=== PATIENT | male | born 1940 | race Caucasian/White ===

== ENCOUNTER 2016-10-28 14:15 | Inpatient (IN) | payer MEDICARE, OTHER ==
[~2016-10-28] VITALS: Ht 177.8 cm; Wt 51.0 kg
[2016-10-28] VITALS (7 sets, daily range): BP systolic 116–171; BP diastolic 82–92; PULSE 54–86; RESP 16–19; TEMP 97.4–97.8; O2SAT 97–100
[2016-10-28] MEDS ORDERED: ACET-703 PO (14:59)
[2016-10-28] MEDS ORDERED: COLA100C3 PO (14:59)
[2016-10-28] MEDS ORDERED: DIVA250ER PO ×2 (14:59)
[2016-10-28] MEDS ORDERED: LORA-474 PO (15:07)
[2016-10-28] MEDS ORDERED: DAILTAB39 PO (15:07)
[2016-10-28] MEDS ORDERED: OLAN5TAB PO (15:07)
[2016-10-28] MEDS ORDERED: MELA1TAB18 PO (15:07)
[2016-10-28] MEDS ORDERED: RIVA4.6T T-DERMAL (15:07)
[2016-10-28] MEDS ORDERED: OLAN2.5T PO (15:07)
[2016-10-28 15:09] LABS: AUTOMATED NEUTROPHIL # 5.3 TH/MM3 (1.8-7.7); BASOPHIL % 0.7 % (0.0-2.0); EOSINOPHIL % 0.1 % (0.0-4.0); HEMATOCRIT 39.5 % (39.0-51.0); HEMO FLAGS DIFF FINAL; LYMPH % 14.2 % (9.0-44.0); MEAN CELL VOLUME 94.1 FL (80.0-100.0); MEAN CORPUSCULAR HEMOGLOBIN 33.2 PG (27.0-34.0); MEAN CORPUSCULAR HGB CONC 35.3 % (32.0-36.0); PLATELET COUNT 222 TH/MM3 (150-450); RED CELL DISTRIBUTION WIDTH 14.7 % (11.6-17.2); WHITE BLOOD COUNT 6.9 TH/MM3 (4.0-11.0)
--- NOTE | 2016-10-28 15:11 | RADRPT ---
EXAM DATE/TIME: 10/28/2016 14:56 [facility] COMPARISON: No previous studies available for comparison. INDICATIONS : Altered mental status. Multiple falls over the past week. RADIATION DOSE: 56.35 CTDIvol (mGy) MEDICAL HISTORY : Dementia. SURGICAL HISTORY : Unable to obtain. ENCOUNTER: Initial ACUITY: 1 week PAIN SCALE: Non-responsive LOCATION: cranial TECHNIQUE: Multiple contiguous axial images were obtained of the head. Using automated exposure control and adj ustment of the mA and/or kV according to patient size, radiation dose was kept as low as reasonably a chievable to obtain optimal diagnostic quality images. FINDINGS: CEREBRUM: The ventricles are normal for age. No evidence of midline shift, mass lesion, hemorrhage or acute in farction. No extra-axial fluid collections are seen. There is extensive atrophy and microvascular is chemic deep white matter demyelinization. POSTERIOR FOSSA: The cerebellum and brainstem are intact. The 4th ventricle is midline. The cerebellopontine angle i s unremarkable. EXTRACRANIAL: The visualized portion of the orbits is intact. Air-fluid level left maxillary sinus and mucoperioste al thickening in the bilateral ethmoid air cells. SKULL: The calvaria is intact. No evidence of skull fracture. CONCLUSION: Intracranially with diffuse deep white matter periventricular microvascular ischemic demyelination an d atrophy. No acute abnormality. Bilateral ethmoid sinus disease mucoperiosteal thick ening and air-fluid level in the left maxillary sinus Eduardo Gurrola MD on October 28, 2016 at 15:07 Board Certified Radiologist. This report was verified electronically.
--- NOTE | 2016-10-28 15:24 | PD ---
HPI Chief Complaint: Fall Time Seen by Provider: 14:21 Travel History International Travel<30 days: No Contact w/Intl Traveler<30days: No Traveled to known affect area: No History of Present Illness HPI Patient is a demented 76-year-old male who presents the emergency department with report of altered mental status after a fall. Patient has reportedly had several falls over the last week, with injury to the head. Staff note that he is now having difficulty ambulating and increasing confusion, which is a change from his baseline mental status. He was sent to [facility] several times over the last week for evaluation with discharge to home. Care facility requested transfer to [facility] today given they've not gotten answers previously. Patient is alert to self only and unable to participate with history. PFSH Past Medical History Hx Anticoagulant Therapy: No Anxiety: Yes Cancer: Yes (skin) Cardiovascular Problems: No Chemotherapy: No Cerebrovascular Accident: No Dementia: Yes Diabetes: No Diminished Hearing: No Headaches: Yes (chronic) Respiratory: No Tetanus Vaccination: Unknown ?: Not Past Surgical History Surgical History: Unable to Obtain Hysterectomy: No Social History Alcohol Use: No Tobacco Use: No Substance Use: No Allergies-Medications (Allergen,Severity, Reaction): Coded Allergies: No Known Allergies (Unverified , 10/28/16) Reported Meds & Prescriptions Reported Meds & Active Scripts Active Reported Exelon Patch (Rivastigmine) 4.6 mg/24 hr Patch 1 Patch T-DERMAL DAILY Remove old patch before applying new patch Daily Anusha (Multiple Vitamin) 1 Tab Tab 1 Tab PO DAILY Olanzapine 5 Mg Tab 5 Mg PO BID Olanzapine 2.5 Mg Tab 2.5 Mg PO HS Melatonin 10 Mg Tab 10 Mg PO HS Ativan (Lorazepam) 1 Mg Tab 1 Mg PO TID Depakote ER (Divalproex Sodium) 250 Mg Mazin 250 Mg PO DAILY Depakote ER (Divalproex Sodium) 250 Mg Mazin 500 Mg PO HS Colace (Docusate Sodium) 100 Mg Cap 100 Mg PO BID Tylenol Extra Strength (Acetaminophen) 500 Mg Tab 500 Mg PO BID Review of Systems ROS Limitations: Altered Mental Status, Poor Historian Physical Exam Exam Limitations: Altered Mental Status, Poor Historian Narrative GENERAL: Chronically ill-appearing demented elderly male in no acute distress SKIN: Warm and dry. Skin tears to the bilateral elbows. HEAD: To kiran/abrasion to the head. Normocephalic. EYES: Pupils equal and round. No scleral icterus. No injection or drainage. ENT: No nasal bleeding or discharge. Mucous membranes pink and moist. NECK: Supple without midline tenderness to palpation. CARDIOVASCULAR: Regular rate and rhythm. No murmur appreciated. RESPIRATORY: No accessory muscle use. Clear to auscultation. Breath sounds equal bilaterally. GASTROINTESTINAL: Abdomen soft, non-tender, nondistended. MUSCULOSKELETAL: Skin tears to the bilateral elbows as above. 1-2+ edema to the mid kiran bilaterally. NEUROLOGICAL: Awake and alert to self only. Mumbling speech. Grossly nonfocal neuro exam. Data Data Last Documented VS Vital Signs Date Time Temp Pulse Resp B/P Pulse Ox O2 Delivery O2 Flow Rate FiO2 10/28/16 14:37 100 Room Air 10/28/16 14:33 73 16 10/28/16 14:25 97.8 116/82 Orders Electrocardiogram (10/28/16 14:21) Ammonia (10/28/16 14:21) Complete Blood Count With Diff (10/28/16 14:21) Comprehensive Metabolic Panel (10/28/16 14:21) Urinalysis - C+S If Indicated (10/28/16 14:21) Ct Brain W/O Iv Contrast(Rout) (10/28/16 14:21) Ecg Monitoring (10/28/16 14:21) Iv Access Insert/Monitor (10/28/16 14:21) Cath For Specimen (10/28/16 14:21) Oximetry (10/28/16 14:21) Valproic Acid (Depakene) (10/28/16 14:21) Urine Culture (10/28/16 15:27) Admit Order (Ed Use Only) (10/28/16 15:59) Ceftriaxone Inj (Rocephin Inj) (10/28/16 16:00) Labs Laboratory Tests Test 10/28/16 10/28/16 14:52 15:27 White Blood Count 6.9 TH/MM3 Red Blood Count 4.20 MIL/MM3 Hemoglobin 13.9 GM/DL Hematocrit 39.5 % Mean Corpuscular Volume 94.1 FL Mean Corpuscular Hemoglobin 33.2 PG Mean Corpuscular Hemoglobin 35.3 % Concent Red Cell Distribution Width 14.7 % Platelet Count 222 TH/MM3 Mean Platelet Volume 8.5 FL Neutrophils (%) (Auto) 77.0 % Lymphocytes (%) (Auto) 14.2 % Monocytes (%) (Auto) 8.0 % Eosinophils (%) (Auto) 0.1 % Basophils (%) (Auto) 0.7 % Neutrophils # (Auto) 5.3 TH/MM3 Lymphocytes # (Auto) 1.0 TH/MM3 Monocytes # (Auto) 0.6 TH/MM3 Eosinophils # (Auto) 0.0 TH/MM3 Basophils # (Auto) 0.0 TH/MM3 CBC Comment DIFF FINAL Differential Comment Sodium Level 138 MEQ/L Potassium Level 4.1 MEQ/L Chloride Level 104 MEQ/L Carbon Dioxide Level 26.9 MEQ/L Anion Gap 7 MEQ/L Blood Urea Nitrogen 31 MG/DL Creatinine 0.70 MG/DL Estimat Glomerular Filtration 110 ML/MIN Rate Random Glucose 84 MG/DL Calcium Level 8.9 MG/DL Total Bilirubin 0.4 MG/DL Aspartate Amino Transf 137 U/L (AST/SGOT) Alanine Aminotransferase 71 U/L (ALT/SGPT) Alkaline Phosphatase 102 U/L Ammonia 14 MCMOL/L Total Protein 6.7 GM/DL Albumin 2.6 GM/DL Valproic Acid (Depakene) Level 18 MCG/ML Urine Color YELLOW Urine Turbidity CLOUDY Urine pH 7.0 Urine Specific [place] 1.031 Urine Protein 30 mg/dL Urine Glucose (UA) NEG mg/dL Urine Ketones 10 mg/dL Urine Occult Blood SMALL Urine Nitrite NEG Urine Bilirubin NEG Urine Urobilinogen 2.0 MG/DL Urine Leukocyte Esterase MOD Urine RBC 25 /hpf Urine WBC 34 /hpf Urine WBC Clumps FEW Urine Squamous Epithelial <1 /hpf Cells Urine Triple Phosphate FEW /hpf Crystals Urine Bacteria OCC /hpf Urine Mucus FEW /lpf Urine Yeast (Budding) MANY Microscopic Urinalysis Comment CULTURE INDICATED MDM Medical Decision Making Medical Screen Exam Complete: Yes Emergency Medical Condition: Yes Medical Record Reviewed: Yes Differential Diagnosis Demented 76-year-old male here with complaint of increasing falls over the last several weeks with altered mental status. Differential includes closed head injury, skull fracture, ICH, electrolyte abnormality, UTI, hyperammonemia, supratherapeutic Depakote level, worsening dementia. Narrative Course Patient placed on monitor, IV established and blood obtained. Twelve-lead EKG showed sinus rhythm with mild sinus arrhythmia. No notable ST abnormalities, normal intervals. CT of the brain shows chronic changes, but no acute abnormalities. CBC, CMP, ammonia, Depakote level, urinalysis obtained and notable for urinary tract infection with white cell, white cell clumps, bacteria and yeast. Patient was treated with Rocephin and will be admitted for further management. Diagnosis Primary Impression: Altered mental status Qualified Code: R41.0 - Delirium Additional Impression: Urinary tract infection Qualified Code: N30.01 - Acute cystitis with hematuria Admitting Information Admitting Physician Requests: Admit Denisse Montez MD Oct 28, 2016 15:24
[2016-10-28 15:37] LABS: ALKALINE PHOSPHATASE 102 U/L (45-117); ALT (GPT) 71 U/L (12-78); ANION GAP 7 MEQ/L (5-15); AST (GOT) 137 U/L (15-37); BICARBONATE 26.9 MEQ/L (21.0-32.0); BLOOD UREA NITROGEN 31 MG/DL (7-18); CHLORIDE 104 MEQ/L (98-107); GLOMERULAR FILTRATION RATE 110 ML/MIN (>89); SODIUM (NA) 138 MEQ/L (136-145); TOTAL BILIRUBIN ADULT 0.4 MG/DL (0.2-1.0)
[2016-10-28 15:43] LABS: POTASSIUM 4.1 MEQ/L (3.5-5.1)
[2016-10-28 15:52] LABS: BACTERIA, URINE OCC /hpf; BLOOD, URINE SMALL (NEG); COMMENT (UR) CULTURE INDICATED; CULTURE IF INDICATED CULTURE INDICATED; GLUCOSE,URINE NEG (NEG); KETONE, URINE 10 mg/dL (NEG); MUCUS URINE FEW /lpf (OCC); NITRITE,URINE NEG (NEG); SQUAMOUS EPITHELIAL CELL URINE <1 /hpf (0-5); URINE COLOR YELLOW (YELLW/STRAW)
[2016-10-28 15:53] LABS: TRIPLE PHOSPHATE CRYSTAL,URINE FEW /hpf
[2016-10-28] MEDS ORDERED: cefTRIAXone INJ 1,000 MG in SODIUM CHLORIDE 0.9% INJ 100 ML IV ONE (16:00)
[2016-10-28] MEDS ORDERED: SODIUM CHLORIDE 0.9% FLUSH 5 ML FLUSH FLUSH PRN (17:45)
[2016-10-28] MEDS ORDERED: HALOPERIDOL LACTATE 5 MG/ML AMP IM ONE (18:45)
[2016-10-28] MEDS ORDERED: DIVALPROEX SODIUM E.R. 250 MG TAB PO SCH (21:00)
[2016-10-28] MEDS: ACETAMINOPHEN 1000 MG/100 ML VIAL IV SCH (21:58)
[2016-10-28] MEDS: SODIUM CHLORIDE 0.9% FLUSH 5 ML FLUSH FLUSH SCH (21:59)
[2016-10-28] MEDS: DOCUSATE SODIUM 100 MG CAP PO SCH (21:59)
[2016-10-28] MEDS: OLANZapine 5 MG TAB PO SCH (21:59)
[2016-10-28] MEDS: DIVALPROEX SODIUM E.R. 500 MG TAB PO SCH (21:59)
[2016-10-28] MEDS: OLANZapine 2.5 MG TAB PO SCH (21:59)
--- NOTE | 2016-10-28 23:16 | HHI.HP ---
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 He has been seen in [facility] many times in the last several months for falls and continues to deteriorate. More acutely, he is had worsening confusion and agitation. Patient is a poor historian and no report was given with regards to his baseline from the prison. [facility] will makes comment about the frequent falls. Patient will occasionally answer yes or no questions in this regard he says he is not having any chest pains, trouble breathing, burning when he urinates, headaches, vision changes. However, as noted patient is a poor historian due to severe dementia and current altered mental status. (Frank Martini MD R1) Review of Systems ROS Limitations: Clinical Condition, Altered Mental Status, Poor Historian Other See history of present illness (Frank Martini MD R1) Past Family Social History Past Medical History Parkinson's disease Dementia Past Surgical History No history available, patient cannot answer Reported Medications Reported Meds & Active Scripts Active Reported Exelon Patch (Rivastigmine) 4.6 mg/24 hr Patch 1 Patch T-DERMAL DAILY Remove old patch before applying new patch Daily Anusha (Multiple Vitamin) 1 Tab Tab 1 Tab PO DAILY Olanzapine 5 Mg Tab 5 Mg PO BID Olanzapine 2.5 Mg Tab 2.5 Mg PO HS Melatonin 10 Mg Tab 10 Mg PO HS Ativan (Lorazepam) 1 Mg Tab 1 Mg PO TID Depakote ER (Divalproex Sodium) 250 Mg Mazin 250 Mg PO DAILY Depakote ER (Divalproex Sodium) 250 Mg Mazin 500 Mg PO HS Colace (Docusate Sodium) 100 Mg Cap 100 Mg PO BID Tylenol Extra Strength (Acetaminophen) 500 Mg Tab 500 Mg PO BID (Frank Martini MD R1) Allergies: Coded Allergies: No Known Allergies (Unverified , 10/28/16) Active Ordered Medications Current Medications Medications (Trade) Dose Ordered Sig/Bhupendra Route Start Time Stop Time Status Last Admin (Depakote Er) 250 mg DAILY PO 10/29/16 09:00 (Colace) 100 mg BID PO 10/28/16 21:00 10/28/16 21:59 (Theragran) 1 tab DAILY PO 10/29/16 09:00 (ZyPREXA) 2.5 mg HS PO 10/28/16 21:00 10/28/16 21:59 (ZyPREXA) 5 mg BID PO 10/28/16 21:00 10/28/16 21:59 (Exelon 4.6 Mg Patch.24hr) 1 patch DAILY T-DERMAL 10/29/16 09:00 (NS Flush) 2 ml UNSCH PRN FLUSH 10/28/16 17:45 (NS Flush) 2 ml BID FLUSH 10/28/16 21:00 10/28/16 21:59 (Roxicodone) 10 mg Q4H PRN PO 10/28/16 17:45 (Ofirmev Inj) 1,000 mg Q6H IV 10/28/16 20:00 10/29/16 14:01 10/28/16 21:58 Oxycodone HCl 5 mg 5 mg Q4H PRN PO 10/28/16 17:45 (Rocephin Inj/NS Inj) 100 ml @ 200 mls/hr Q24H IV 10/29/16 17:00 (Depakote Er) 500 mg HS PO 10/28/16 21:00 10/28/16 21:59 Family History No records available, patient cannot answer Social History No records available, patient does not answer direct questioning (Frank Martini MD R1) Physical Exam Vital Signs Vital Signs Date Time Temp Pulse Resp B/P Pulse Ox O2 Delivery O2 Flow Rate FiO2 10/28/16 20:28 80 17 146/92 98 10/28/16 20:00 97.4 86 18 171/86 97 10/28/16 18:25 77 19 166/82 99 Room Air 10/28/16 16:37 72 17 124/87 100 Room Air 10/28/16 14:37 100 Room Air 10/28/16 14:33 73 16 100 Room Air 10/28/16 14:25 97.8 78 16 116/82 97 Physical Exam Exam limited to due to mental state, patient not following commands well GENERAL: Well-developed, undernourished elderly white male lying in bed appearing confused but pleasant and in no acute distress SKIN: Small ecchymoses/abrasions noted on the bilateral elbows; approximately 3 x 1 cm abrasion noted on the right frontal aspect of the skull; large (greater than 10 x 10 centimeter) stage I sacral decubitus ulcer with no overlying skin breakdown. HEAD: NC/AT EYES: PERRL. EOMI. No conjunctival injection or drainage. ENT: MMM, OP without erythema, tonsillar swelling, or exudate. NECK: Supple, no lymphadenopathy. CARDIOVASCULAR: NRRR. Normal S1/S2. No MRG RESPIRATORY: CTAB. No crackles or wheezes. GASTROINTESTINAL: Abdomen soft, non-distended, non-tender. MUSCULOSKELETAL: Extremities without cyanosis or edema. NEUROLOGICAL: Awake, distracted easily. Not oriented to person, place, or time. Cranial nerves II through XII grossly intact. Difficult to do full neurologic exam because patient does not follow commands well; severe tremor bilateral upper extremities, pill rolling.. Speech normal volume and rate, very easily distracted, talks in circles, highly confused. Laboratory Laboratory Tests Test 10/28/16 10/28/16 10/28/16 14:52 15:27 18:19 White Blood Count 6.9 Red Blood Count 4.20 Hemoglobin 13.9 Hematocrit 39.5 Mean Corpuscular Volume 94.1 Mean Corpuscular Hemoglobin 33.2 Mean Corpuscular Hemoglobin 35.3 Concent Red Cell Distribution Width 14.7 Platelet Count 222 Mean Platelet Volume 8.5 Neutrophils (%) (Auto) 77.0 Lymphocytes (%) (Auto) 14.2 Monocytes (%) (Auto) 8.0 Eosinophils (%) (Auto) 0.1 Basophils (%) (Auto) 0.7 Neutrophils # (Auto) 5.3 Lymphocytes # (Auto) 1.0 Monocytes # (Auto) 0.6 Eosinophils # (Auto) 0.0 Basophils # (Auto) 0.0 CBC Comment DIFF FINAL Differential Comment Sodium Level 138 Potassium Level 4.1 Chloride Level 104 Carbon Dioxide Level 26.9 Anion Gap 7 Blood Urea Nitrogen 31 Creatinine 0.70 Estimat Glomerular Filtration 110 Rate Random Glucose 84 Calcium Level 8.9 Total Bilirubin 0.4 Aspartate Amino Transf 137 (AST/SGOT) Alanine Aminotransferase 71 (ALT/SGPT) Alkaline Phosphatase 102 Ammonia 14 Total Protein 6.7 Albumin 2.6 Valproic Acid (Depakene) Level 18 Urine Color YELLOW Urine Turbidity CLOUDY Urine pH 7.0 Urine Specific [place] 1.031 Urine Protein 30 Urine Glucose (UA) NEG Urine Ketones 10 Urine Occult Blood SMALL Urine Nitrite NEG Urine Bilirubin NEG Urine Urobilinogen 2.0 Urine Leukocyte Esterase MOD Urine RBC 25 Urine WBC 34 Urine WBC Clumps FEW Urine Squamous Epithelial <1 Cells Urine Triple Phosphate FEW Crystals Urine Bacteria OCC Urine Mucus FEW Urine Yeast (Budding) MANY Microscopic Urinalysis Comment CULTURE INDICATED Troponin I LESS THAN 0.02 Date/Time Procedure Status Source Growth 10/28/16 18:02 Aerobic Blood Culture Received Blood Peripheral Pending 10/28/16 18:02 Anaerobic Blood Culture Received Blood Peripheral Pending 10/28/16 15:27 Urine Culture Received Urine Clean Catch Pending (Frank Martini MD R1) Result Diagram: 10/28/16 1452 10/28/16 1452 Imaging Last Impressions Head CT 10/28/16 1421 Signed Impressions: Service Date/Time: Friday, October 28, 2016 14:56 - CONCLUSION: Intracranially with diffuse deep white matter periventricular microvascular ischemic demyelination and atrophy. No acute abnormality. Bilateral ethmoid sinus disease mucoperiosteal thickening and air-fluid level in the left maxillary sinus Eduardo Gurrola MD (Frank Martini MD R1) Assessment and Plan Assessment and Plan 76-year-old male with largely unknown past medical history besides dementia and severe Parkinson's disease presenting with: #1 delirium Difficult to tell whether current mental status is due to underlying dementia versus acute change; for now will assume the changes acute on chronic and workup for medical causes of delirium. Urinalysis showing moderate leuk esterase, many white blood cells Pulmonary exam clear, no leukocytosis, unlikely to be pneumonia CT head negative for acute intracranial bleed * We'll attempt scoff family in the morning to determine patient's baseline mental functioning * Ceftriaxone 1 g IV every 24 hours to cover UTI * Follow up urine culture * IV Tylenol every 6 hours 1 g scheduled * Oxycodone when necessary pain based on nursing assessment * Soft limb restraints as needed given that patient is continually trying to get out of bed due to significant fall risk * Bed rest with bed rest precautions * Hold offending medications (lorazepam) * Frequent redirection, goals to prevent #2 urinary tract infection * Rocephin as above #3 Parkinson's disease * Continue home rivastigmine patch #4 dementia * Continue home antipsychotic medications: Depakote, olanzapine * AM Depakote level #5 DVT prophylaxis SCDs bilaterally #6 frequent falls Mostly mechanical, no evidence at this time of other etiology * PT evaluate and treat * Case management to assist with placement on discharge * Further goals of care pending discussion with family Code Status Full code; will attempt to obtain documentation from either prison or family regarding CODE STATUS Discussed Condition With Dr. Oconnell, Dr. Armstrong (Frank Martini MD R1) Attending Attestation The patient has been seen and examined. The chart and all resident notes have been reviewed. I agree that inpatient care is appropriate and that a two midnight stay is expected for the reasons documented in the resident history and physical. I have discussed this with the resident and certify the resident s order for inpatient admission. (Rhonda Armstrong MD) Problem List: (1) Altered mental status Status: Acute (2) Urinary tract infection Status: Acute (3) Frequent falls Status: Chronic (4) Parkinson disease Status: Chronic (5) Dementia Status: Chronic (Frank Martini MD R1) Physician Certification 2 Midnight Certification Type: Admission for Inpatient Services Order for Inpatient Services The services are ordered in accordance with Medicare regulations or non- Medicare payer requirements, as applicable. In the case of services not specified as inpatient-only, they are appropriately provided as inpatient services in accordance with the 2-midnight benchmark. Estimated LOS (days): 2 days is the estimated time the patient will need to remain in the hospital, assuming treatment plan goals are met and no additional complications. 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
[2016-10-29] VITALS: BP 139/80; PULSE 58; RESP 18; TEMP 97.6; O2SAT 99
[2016-10-29] MEDS: ACETAMINOPHEN 1000 MG/100 ML VIAL IV SCH ×3 (02:00→16:08)
[2016-10-29 04:00] VITALS: BP 138/69; PULSE 57; RESP 18; TEMP 97.3; O2SAT 100
[2016-10-29 08:03] LABS: AUTOMATED NEUTROPHIL # 4.2 TH/MM3 (1.8-7.7); BASOPHIL % 0.6 % (0.0-2.0); EOSINOPHIL % 0.8 % (0.0-4.0); HEMATOCRIT 39.1 % (39.0-51.0); HEMO FLAGS DIFF FINAL; LYMPH % 18.9 % (9.0-44.0); LYMPHOCYTE # 1.1 TH/MM3 (1.0-4.8); MEAN CELL VOLUME 94.1 FL (80.0-100.0); MEAN CORPUSCULAR HEMOGLOBIN 32.6 PG (27.0-34.0); MEAN CORPUSCULAR HGB CONC 34.6 % (32.0-36.0); MONO % 10.1 % (0.0-8.0); NEUT % 69.6 % (16.0-70.0); PLATELET COUNT 207 TH/MM3 (150-450); RED BLOOD COUNT 4.15 MIL/MM3 (4.50-5.90); RED CELL DISTRIBUTION WIDTH 14.3 % (11.6-17.2); WHITE BLOOD COUNT 6.1 TH/MM3 (4.0-11.0)
[2016-10-29 08:27] LABS: POTASSIUM 3.3 MEQ/L (3.5-5.1)
[2016-10-29 08:54] VITALS: BP 137/69; PULSE 68; RESP 18; TEMP 96.8; O2SAT 97
[2016-10-29] MEDS: OLANZapine 5 MG TAB PO SCH ×2 (09:00→20:51)
[2016-10-29] MEDS ORDERED: POTASSIUM CHLORIDE 10 MEQ CONTROLLED RELEASE TAB PO ONE (09:00)
[2016-10-29] MEDS: SODIUM CHLORIDE 0.9% FLUSH 5 ML FLUSH FLUSH SCH ×2 (09:00→20:51)
--- NOTE | 2016-10-29 09:14 | RADRPT ---
EXAM DATE/TIME: 10/29/2016 08:19 [facility] COMPARISON: No previous studies available for comparison. INDICATIONS : Pneumonia. MEDICAL HISTORY : Dementia. SURGICAL HISTORY : None. ENCOUNTER: Initial ACUITY: 1 day PAIN SCORE: Non-responsive. LOCATION: Bilateral chest FINDINGS: A single view of the chest demonstrates mild parenchymal changes in the right lung base. Otherwise, t he lungs are grossly clear. There are no pleural effusions or pulmonary edema. The heart size is with in normal limits. The bony structures are grossly intact.. CONCLUSION: Mild streaky parenchymal changes in the right lung base suggestive of pneumonia. Carlin Kramer MD on October 29, 2016 at 9:12 Board Certified Radiologist. This report was verified electronically.
[2016-10-29] MEDS: DOCUSATE SODIUM 100 MG CAP PO SCH ×2 (09:56→20:51)
[2016-10-29] MEDS: MULTIVITAMIN TAB PO SCH (09:56)
[2016-10-29] MEDS: DIVALPROEX SODIUM E.R. 250 MG TAB PO SCH (09:56)
[2016-10-29] MEDS: RIVASTIGMINE 4.6 MG/24 HOUR PATCH T-DERMAL SCH (10:18)
[2016-10-29] MEDS ORDERED: AZITHROMYCIN INJ 500 MG in SODIUM CHLOR 0.9% 250 ML INJ 250 ML IV ONE (12:30)
[2016-10-29 13:22] VITALS: BP 143/71; PULSE 62; RESP 18; TEMP 96.1; O2SAT 97
--- NOTE | 2016-10-29 13:23 | HHI.FPPN ---
Subjective Subjective Patient seen and examined with the resident team. Case reviewed and discussed Please refer to resident H&P for further details regarding HPI, ROS, PMH, SurgHx , Fh and SocHx In summary, patient is a 76yoM with a history of known advanced dementia presenting from his nursing facility for AMS The patient has had multiple prior hospitalizations due to frequent and increased falling. He is seen in his hospital bed this am, slightly more alert, cognition remains the same. Speech therapy and sitter at the bedside to perform cognitive eval [facility] Objective Objective Laboratory Tests - Abnormals Test 10/28/16 10/28/16 10/28/16 10/29/16 14:52 15:27 18:19 07:27 Red Blood Count 4.20 MIL/MM3 4.15 MIL/MM3 Neutrophils (%) (Auto) 77.0 % Blood Urea Nitrogen 31 MG/DL 21 MG/DL Aspartate Amino Transf 137 U/L (AST/SGOT) Albumin 2.6 GM/DL Valproic Acid (Depakene) Level 18 MCG/ML Urine Turbidity CLOUDY Urine Protein 30 mg/dL Urine Ketones 10 mg/dL Urine Occult Blood SMALL Urine Leukocyte Esterase MOD Urine RBC 25 /hpf Urine WBC 34 /hpf Urine WBC Clumps FEW Urine Triple Phosphate FEW /hpf Crystals Urine Bacteria OCC /hpf Urine Mucus FEW /lpf Urine Yeast (Budding) MANY Troponin I LESS THAN 0.02 NG/ML Monocytes (%) (Auto) 10.1 % Potassium Level 3.3 MEQ/L Creatinine 0.50 MG/DL Calcium Level 8.4 MG/DL 25-Hydroxy Vitamin D Total 19.0 ng/ML Vital Signs 10/28/16 10/28/16 10/28/16 10/28/16 14:25 14:33 14:37 16:37 Temp 97.8 Pulse 78 73 72 Resp 16 16 17 B/P 116/82 124/87 Pulse Ox 97 100 100 100 O2 Delivery Room Air Room Air Room Air 10/28/16 10/28/16 10/28/16 10/28/16 18:25 20:00 20:28 23:30 Temp 97.4 Pulse 77 86 80 54 Resp 19 18 17 B/P 166/82 171/86 146/92 Pulse Ox 99 97 98 O2 Delivery Room Air 10/29/16 10/29/16 10/29/16 00:00 04:00 08:54 Temp 97.6 97.3 96.8 Pulse 58 57 68 Resp 18 18 18 B/P 139/80 138/69 137/69 Pulse Ox 99 100 97 Physical exam GENERAL: Thin elderly male, resting in bed. Awake. Confused SKIN: Warm and dry. No rashes, several abrasions over head and extremities. HEAD: Normocephalic. AT EYES: No scleral icterus. No injection or drainage. ENT: OP clear. MMM NECK: Supple, trachea midline. No JVD or lymphadenopathy. CARDIOVASCULAR: Regular rate and rhythm without audible murmurs, gallops, or rubs. RESPIRATORY: Breath sounds equal and clear to auscultation bilaterally. No accessory muscle use. GASTROINTESTINAL: Abdomen soft, non-tender, nondistended. Normal active BS. No rebound. No suprapubic tenderness MUSCULOSKELETAL: No cyanosis, there is trace edema, warmth and erythema over R dorsal foot and ankle with ?tenderness and mild noted deformity of 5th metatarsal. BACK: Nontender without obvious deformity. No CVA tenderness. NEURO: Awake, pleasantly confused. Able to follow some commands, answers, but inappropriately. Assessment Assessment 76yoM admitted with: AMS, suspect related to UTI Advanced dementia PNA Hypokalemia Frequent falls PLAN PLAN PT consultation Empiric antibiotic therapy Follow urine culture results blood cultures Foot XR to r/o injury from fall Replete hypokalemia ST consult for cognitive eval Check Depakote level Will contact family and NH to determine code status and health care surrogate status. Patient seen and examined with the resident team. Case reviewed with the resident team Agree with plan of care as discussed with me and documented in the resident note. Rhonda Armstrong MD Oct 29, 2016 13:21
--- NOTE | 2016-10-29 15:52 | RADRPT ---
EXAM DATE/TIME: 10/29/2016 14:17 [facility] COMPARISON: No previous studies available for comparison. INDICATIONS : Right ankle swelling. MEDICAL HISTORY : Dementia. SURGICAL HISTORY : None. ENCOUNTER: Subsequent ACUITY: 2 days PAIN SCORE: 0/10 LOCATION: Right ankle. FINDINGS: Three view exam was performed of the right ankle. The bony structures are in normal alignment. No e vidence of fracture, dislocation, and there is mild generalized soft tissue swelling.. The ankle mor tise is intact. No radiopaque foreign bodies are seen. Bony mineralization is normal. CONCLUSION: Mild generalized soft tissue swelling. Otherwise negative. Eduardo Gurrola MD on October 29, 2016 at 15:49 Board Certified Radiologist. This report was verified electronically.
[2016-10-29] MEDS ORDERED: cefTRIAXone INJ 1,000 MG in SODIUM CHLORIDE 0.9% INJ 100 ML IV SCH (17:00)
--- NOTE | 2016-10-29 17:02 | PD.CONS ---
Consult Service Palliative Care . Consult Requested By Dr. Martini . Primary Care Physician Non-Staff . Reason for Consultation a. To assist with evaluation and management of symptoms including: Pain, confusion, agitation b. To assist medical decision maker(s) with: better understanding of current medical conditions; weighing benefits/burdens of medical treatment options; making medical treatment decisions. . HPI History of Present Illness Mr. Hamilton is a 76-year-old gentleman who presented to [facility] ED in [place] on 10/28/16 for evaluation of AMS status post a fall. Mr. Hamilton, who is a resident at the [facility], has a history of Parkinson's disease and dementia. Per report, the patient has experienced an acute decline over the past 2 to 3 weeks. Facility staff reported the patient was having more difficulty with ambulation and increased confusion, previously the patient was able to ambulate, toilet, dress and feed himself with minimal assistance. The patient has had several falls (at least 3) last week, without head injury or LOC. He was sent to [facility] multiple times for evaluation with subsequent discharged home. The facility staff requested the patient be transferred to [place] for further evaluation given "they've not gotten answers previously". Upon presentation to the ED the patient was alert to self only, unable to provide any meaningful history. Additional diagnostic findings in while the ED include: * Vital signs: Pulse 78, respirations 16, BP 116/82, oxygen saturation 97% on room air, axillary temperature 97.8 * WBC: 6.9, hemoglobin 13.9, hematocrit 39.5, platelets 222, neutrophils 77% * Sodium: 138, potassium 4.1, chloride 104, carbon dioxide 26.9, glucose 84, calcium 8.9 * BUN 31, creatinine 0.70, GFR 110 * Total bilirubin: 0.4, AST 137, ALT 71, alkaline phosphatase 102, ammonia 14 * Troponin: < 0.02 * Total protein: 6.7, albumin 2.6 * Urinalysis: Cloudy urine with protein, ketones, occult blood, leukocyte Estrace, RBC, WBC, WBC clumps, bacteria, mucus and yeast. Suspicious for UTI, culture indicated. * Urine culture-Pending * Blood culture: No growth in 1 day * CT brain: Intracranially with diffuse deep white matter periventricular microvascular demyelination and atrophy, no acute abnormalities. * EKG: Sinus rhythm with mild sinus arrhythmia. No notable ST abnormalities, normal intervals. Mr. Hamilton was placed on a monitor and IV access was obtained. Twelve-lead EKG showed a sinus rhythm with mild sinus arrhythmia. No notable ST abnormality, normal intervals a CT of the brain showed chronic changes but no acute abnormalities. Urinalysis was suspicious for a urinary tract infection. Urine cultures and blood cultures pending. The patient received IV Rocephin and was admitted for further evaluation and medical management. Patient remains confused, in soft restraints with a sitter at bedside. Physical therapy and speech therapy have been consulted. Speech therapy administered a modified [facility] mental examination (UMS), excluding written portions. The patient achieved a score of 0/24 points which is indicative of severe neurocognitive disorder/dementia. Chest x-ray 10/29/16 shows mild streaking parenchymal changes in the right lung base suggestive of pneumonia. X-ray foot pending to rule out possible injury secondary to fall. Palliative Care was consulted to assist with symptom management and to discuss with the patient/family the benefits and burdens of his current illnesses and the options regarding future care. . Function/Cognitive Trajectory Per report, the patient has experienced an acute decline over the past 2 to 3 weeks. Facility staff reported the patient was having more difficulty with ambulation and increased confusion, previously the patient was able to ambulate , toilet, dress and feed himself with minimal assistance. The patient has had several falls (at least 3) last week. Patient's states the patient began to decline in February 2016, becoming increasingly forgetful and agitated. By April 2016, the patient's was no longer able to care for him at home and he was placed at [facility]. (Aphasia, tremors). A 30 pound weight loss is reported over a 9 month, despite good nutritional intake. Additional information pending tentative family meeting. . . Review of Systems ROS Limitations: Altered Mental Status, Poor Historian Past Family Social History Coded Allergies: No Known Allergies (Unverified , 10/28/16) Past Medical History Parkinson's disease Dementia . Past Surgical History No history available, patient is unable to answer questions . Reported Medications Exelon Patch (Rivastigmine) 4.6 mg/24 hr Patch 1 Patch T-DERMAL DAILY Remove old patch before applying new patch Daily Anusha (Multiple Vitamin) 1 Tab Tab 1 Tab PO DAILY Olanzapine 5 Mg Tab 5 Mg PO BID Olanzapine 2.5 Mg Tab 2.5 Mg PO HS Melatonin 10 Mg Tab 10 Mg PO HS Ativan (Lorazepam) 1 Mg Tab 1 Mg PO TID Depakote ER (Divalproex Sodium) 250 Mg Mazin 250 Mg PO DAILY Depakote ER (Divalproex Sodium) 250 Mg Mazin 500 Mg PO HS Colace (Docusate Sodium) 100 Mg Cap 100 Mg PO BID Tylenol Extra Strength (Acetaminophen) 500 Mg Tab 500 Mg PO BID . Current Medications Medications (Trade) Dose Ordered Sig/Bhupendra Route Start Time Stop Time Status Last Admin (Depakote Er) 250 mg DAILY PO 10/29/16 09:00 10/29/16 09:56 (Colace) 100 mg BID PO 10/28/16 21:00 10/29/16 09:56 (Theragran) 1 tab DAILY PO 10/29/16 09:00 10/29/16 09:56 (ZyPREXA) 2.5 mg HS PO 10/28/16 21:00 10/28/16 21:59 (ZyPREXA) 5 mg BID PO 10/28/16 21:00 10/29/16 09:00 (Exelon 4.6 Mg Patch.24hr) 1 patch DAILY T-DERMAL 10/29/16 09:00 10/29/16 10:18 (NS Flush) 2 ml UNSCH PRN FLUSH 10/28/16 17:45 (NS Flush) 2 ml BID FLUSH 10/28/16 21:00 10/28/16 21:59 (Roxicodone) 10 mg Q4H PRN PO 10/28/16 17:45 Oxycodone HCl 5 mg 5 mg Q4H PRN PO 10/28/16 17:45 (Rocephin Inj/NS Inj) 100 ml @ 200 mls/hr Q24H IV 10/29/16 17:00 Divalproex Sodium 500 mg 500 mg HS PO 10/28/16 21:00 10/28/16 21:59 (Zithromax Inj/ NS 250 ml Inj) 250 ml @ 250 mls/hr Q24H IV 10/30/16 12:00 . Family History Patient's sister with cerebral vascular disease . . Substance Use pending family meeting..... Tobacco: None known Alcohol: None known Prescription med abuse: None known Illicits: None known . Psychosocial History Patient was born in [place], but moved to [place] when he was approximately 11 years old. The patient's states he enjoyed fishing and hunting. He had 2 older brother, both before he was born (around the age of 2 years). He has one sister. The patient is to Indy Hamilton. Together they had 2 children - the patient's states one child is and they have lost contact with the other child. . Spiritual/Cultural Factors None known . Living Will: Never completed Health Care Surrogate: Never completed Durable Power of Seo Specialist: Never completed Documented care wishes: No written advanced directives have been completed. . Today's verbally stated goals: Patient is incapacitated, unable to verbalize medical treatment goals. Given the patient's severe neurocognitive disorder/dementia, it is unlikely he will retain this capacity. . Family/friends goals: Goals remain aggressive up to the point of resuscitation, pending further discussion with the patient's . . Ethical and Legal Issues Per [place] statutes, in the absence of written advanced directives healthcare proxy decision making will fall to the patient's Indy Hamilton. . Physical Exam Vital Signs Date Time Temp Pulse Resp B/P Pulse Ox O2 Delivery O2 Flow Rate FiO2 10/29/16 13:22 96.1 62 18 143/71 97 10/29/16 08:54 96.8 68 18 137/69 97 10/29/16 04:00 97.3 57 18 138/69 100 10/29/16 00:00 97.6 58 18 139/80 99 10/28/16 23:30 54 10/28/16 20:28 80 17 146/92 98 10/28/16 20:00 97.4 86 18 171/86 97 10/28/16 18:25 77 19 166/82 99 Room Air 10/28/16 16:37 72 17 124/87 100 Room Air . Exam Diagnostic Tests Laboratory Laboratory Tests Test 10/28/16 10/28/16 10/28/16 10/29/16 14:52 15:27 18:19 07:27 White Blood Count 6.9 TH/MM3 6.1 TH/MM3 (4.0-11.0) (4.0-11.0) Red Blood Count 4.20 MIL/MM3 4.15 MIL/MM3 (4.50-5.90) (4.50-5.90) Hemoglobin 13.9 GM/DL 13.5 GM/DL (13.0-17.0) (13.0-17.0) Hematocrit 39.5 % 39.1 % (39.0-51.0) (39.0-51.0) Mean Corpuscular Volume 94.1 FL 94.1 FL (80.0-100.0) (80.0-100.0) Mean Corpuscular Hemoglobin 33.2 PG 32.6 PG (27.0-34.0) (27.0-34.0) Mean Corpuscular Hemoglobin 35.3 % 34.6 % Concent (32.0-36.0) (32.0-36.0) Red Cell Distribution Width 14.7 % 14.3 % (11.6-17.2) (11.6-17.2) Platelet Count 222 TH/MM3 207 TH/MM3 (150-450) (150-450) Mean Platelet Volume 8.5 FL 8.2 FL (7.0-11.0) (7.0-11.0) Neutrophils (%) (Auto) 77.0 % 69.6 % (16.0-70.0) (16.0-70.0) Lymphocytes (%) (Auto) 14.2 % 18.9 % (9.0-44.0) (9.0-44.0) Monocytes (%) (Auto) 8.0 % (0.0-8.0) 10.1 % (0.0-8.0) Eosinophils (%) (Auto) 0.1 % (0.0-4.0) 0.8 % (0.0-4.0) Basophils (%) (Auto) 0.7 % (0.0-2.0) 0.6 % (0.0-2.0) Neutrophils # (Auto) 5.3 TH/MM3 4.2 TH/MM3 (1.8-7.7) (1.8-7.7) Lymphocytes # (Auto) 1.0 TH/MM3 1.1 TH/MM3 (1.0-4.8) (1.0-4.8) Monocytes # (Auto) 0.6 TH/MM3 0.6 TH/MM3 (0-0.9) (0-0.9) Eosinophils # (Auto) 0.0 TH/MM3 0.0 TH/MM3 (0-0.4) (0-0.4) Basophils # (Auto) 0.0 TH/MM3 0.0 TH/MM3 (0-0.2) (0-0.2) CBC Comment DIFF FINAL DIFF FINAL Differential Comment Sodium Level 138 MEQ/L 138 MEQ/L (136-145) (136-145) Potassium Level 4.1 MEQ/L 3.3 MEQ/L (3.5-5.1) (3.5-5.1) Chloride Level 104 MEQ/L 103 MEQ/L (98-107) (98-107) Carbon Dioxide Level 26.9 MEQ/L 27.0 MEQ/L (21.0-32.0) (21.0-32.0) Anion Gap 7 MEQ/L (5-15) 8 MEQ/L (5-15) Blood Urea Nitrogen 31 MG/DL (7-18) 21 MG/DL (7-18) Creatinine 0.70 MG/DL 0.50 MG/DL (0.60-1.30) (0.60-1.30) Estimat Glomerular Filtration 110 ML/MIN 162 ML/MIN Rate (>89) (>89) Random Glucose 84 MG/DL 77 MG/DL (74-106) (74-106) Calcium Level 8.9 MG/DL 8.4 MG/DL (8.5-10.1) (8.5-10.1) Total Bilirubin 0.4 MG/DL (0.2-1.0) Aspartate Amino Transf 137 U/L (15-37) (AST/SGOT) Alanine Aminotransferase 71 U/L (12-78) (ALT/SGPT) Alkaline Phosphatase 102 U/L (45-117) Ammonia 14 MCMOL/L (11-32) Total Protein 6.7 GM/DL (6.4-8.2) Albumin 2.6 GM/DL (3.4-5.0) Valproic Acid (Depakene) Level 18 MCG/ML (50-100) Urine Color YELLOW (YELLW/STRAW) Urine Turbidity CLOUDY (CLEAR) Urine pH 7.0 (5.0-8.5) Urine Specific Newberry 1.031 (1.002-1.035) Urine Protein 30 mg/dL (NEG-TRACE) Urine Glucose (UA) NEG mg/dL (NEG) Urine Ketones 10 mg/dL (NEG) Urine Occult Blood SMALL (NEG) Urine Nitrite NEG (NEG) Urine Bilirubin NEG (NEG) Urine Urobilinogen 2.0 MG/DL (LESS THAN 2.0) Urine Leukocyte Esterase MOD (NEG) Urine RBC 25 /hpf (0-3) Urine WBC 34 /hpf (0-5) Urine WBC Clumps FEW (NONE) Urine Squamous Epithelial <1 /hpf (0-5) Cells Urine Triple Phosphate FEW /hpf (NONE) Crystals Urine Bacteria OCC /hpf (NONE) Urine Mucus FEW /lpf (OCC) Urine Yeast (Budding) MANY (NONE) Microscopic Urinalysis Comment CULTURE INDICATED Troponin I LESS THAN 0.02 NG/ML (0.02-0.05) Vitamin B12 Level PG/ML (193-986) 25-Hydroxy Vitamin D Total 19.0 ng/ML (30-100) . Result Diagram: 10/29/16 0727 10/29/16 0727 Microbiology Microbiology Date/Time Procedure Status Source Growth 10/28/16 15:27 Urine Culture - Preliminary Resulted Urine Clean Catch IMMATURE GROWTH - REINCUBATE 10/28/16 18:02 Aerobic Blood Culture - Preliminary Resulted Blood Peripheral NO GROWTH IN 1 DAY 10/28/16 18:02 Anaerobic Blood Culture - Preliminary Resulted Blood Peripheral NO GROWTH IN 1 DAY . Imaging Last 24 hours Impressions Chest X-Ray 10/29/16 0000 Signed Impressions: Service Date/Time: Saturday, October 29, 2016 08:19 - CONCLUSION: Mild streaky parenchymal changes in the right lung base suggestive of pneumonia. Carlin Kramer MD . Patient/Family Conference Present at Family Conference: Spoke to patient's via telephone. Family meeting we plan for 10/30/16 at 1300. . Family Conference Location: Telephone Issues Discussed: * Palliative care role, purpose, approach * Additional medical, psychosocial, and spiritual history * Patients general health, functional status, and cognitive changes in the months leading up to the current hospitalization * Patient/family understanding of the current medical problems * Questions answered to the best of my ability * Palliative care contact information provided . Assessment and Plan Disease Oriented Problem List: (1) Dementia (2) Urinary tract infection (3) Frequent falls Symptom Scale: (1) Altered mental status Comment: Patient remains confused, in soft restraints with a sitter at bedside. Physical therapy and speech therapy have been consulted. Speech therapy administered a modified [facility] mental examination (UMS) , excluding written portions. The patient achieved a score of 0/24 points which is indicative of severe neurocognitive disorder/dementia. . (2) Pain 0-10 Scale: Unable to quantify Comment: PRN oxycodone is available q4 hours for symptom managementpain. . (3) Agitation Pertinent Non-Medical Issues Psychosocial: Spiritual: Legal: Ethical issues impacting care: Important Contacts Indy Hamilton, spouse: [phone] . Code Status: No Code Plan * NO CODE * Decision-making: Patient is incapacitated, unable to verbalize medical treatment goals. Given the patient's severe neurocognitive disorder/dementia, it is unlikely he will retain this capacity. Per [place] statutes, in the absence of written advanced directives healthcare proxy decision making will fall to the patient's Indy Hamilton. * Goals: Goals remain aggressive up to the point of resuscitation, pending further discussion with the patient's . * Tentative family meeting scheduled for tomorrow 10/30/16 at 1:30 PM * Palliative care will continue to follow this patient to establish trust, assist with symptom management and clarification of medical treatment goals. . Thank you for the opportunity to participate in the care of Mr. Hamilton. Opal Babb Oct 29, 2016 16:43 (3) Agitation Pertinent Non-Medical Issues Psychosocial: Spiritual: Legal: Ethical issues impacting care: Important Contacts Indy Hamilton, spouse: [phone] . Code Status: No Code Plan DRAFT.. * NO CODE * Decision-making: Patient is incapacitated, unable to verbalize medical treatment goals. Given the patient's severe neurocognitive disorder/dementia, it is unlikely he will retain this capacity. Per [place] statutes, in the absence of written advanced directives healthcare proxy decision making will fall to the patient's Indy Hamilton. * Goals: Goals remain aggressive up to the point of resuscitation, pending further discussion with the patient's . * Tentative family meeting scheduled for tomorrow 10/30/16 at 1:30 PM * Palliative care will continue to follow this patient to establish trust, assist with symptom management and clarification of medical treatment goals. . Thank you for the opportunity to participate in the care of Mr. Hamilton. Opal Babb Oct 29, 2016 16:43
[2016-10-29 18:18] VITALS: BP 152/79; PULSE 63; RESP 18; TEMP 98.3; O2SAT 98
[2016-10-29 20:00] VITALS: BP 137/81; PULSE 65; PULSE 82; RESP 18; TEMP 97.3; O2SAT 100
[2016-10-29] MEDS: DIVALPROEX SODIUM E.R. 500 MG TAB PO SCH (20:51)
[2016-10-29] MEDS: OLANZapine 2.5 MG TAB PO SCH (20:51)
--- NOTE | 2016-10-29 23:23 | EKG ---
Date Performed: 10/28/2016 Time Performed: 15:24:20 PTAGE: 76 years EKG: Sinus rhythm WITH SINUS ARRHYTHMIA POSSIBLE LEFT ATRIAL ENLARGEMENT BORDERLINE ECG NO PREVIOUS TRACING DOCTOR: Monae Nj Interpretating Date/Time 10/29/2016 23:16:19
[2016-10-30] VITALS (8 sets, daily range): BP systolic 134–165; BP diastolic 73–95; PULSE 62–91; RESP 20; TEMP 96–98; O2SAT 91–100
[2016-10-30 07:38] LABS: POTASSIUM 4.1 MEQ/L (3.5-5.1)
[2016-10-30] MEDS: DIVALPROEX SODIUM E.R. 250 MG TAB PO SCH (08:52)
[2016-10-30] MEDS: RIVASTIGMINE 4.6 MG/24 HOUR PATCH T-DERMAL SCH (08:52)
[2016-10-30] MEDS: CHOLECALCIFEROL (VIT D3) 1000 UNIT TAB PO SCH (08:52)
[2016-10-30] MEDS: DOCUSATE SODIUM 100 MG CAP PO SCH ×2 (08:52→21:13)
[2016-10-30] MEDS: SODIUM CHLORIDE 0.9% FLUSH 5 ML FLUSH FLUSH SCH ×2 (08:52→21:00)
[2016-10-30] MEDS: OLANZapine 5 MG TAB PO SCH ×2 (08:52→21:12)
[2016-10-30] MEDS: MULTIVITAMIN TAB PO SCH (08:52)
--- NOTE | 2016-10-30 10:58 | HHI.FPPN ---
Subjective Remarks No acute events overnight. AFVSS. Per sitter has eaten well with pureed diet. He occasionally will move his legs in the morning and try to get out of bed. Soft restraints continue to be in place. Still effectively non-verbal but no localizing symptoms patient or care staff able to identify. (Frank Martini MD R1) Objective Vitals Vital Signs Date Time Temp Pulse Resp B/P Pulse Ox O2 Delivery O2 Flow Rate FiO2 10/30/16 08:00 96.4 91 20 143/78 91 10/30/16 04:00 97.4 70 20 155/95 100 10/30/16 00:00 97.6 66 20 134/73 99 10/29/16 21:50 20 10/29/16 20:00 97.3 65 18 137/81 100 10/29/16 20:00 82 10/29/16 18:18 98.3 63 18 152/79 98 10/29/16 13:22 96.1 62 18 143/71 97 I/O 10/29/16 10/29/16 10/29/16 10/30/16 10/30/16 10/30/16 06:59 14:59 22:59 06:59 14:59 22:59 Intake Total 240 ml 240 ml Balance 240 ml 240 ml Intake Oral 240 ml 120 ml IV Total 120 ml # Voids 3 2 4 # Bowel Movements 1 (Frank Martini MD R1) Result Diagram: 10/29/16 0727 10/30/16 0636 Imaging Last Impressions Chest X-Ray 10/29/16 0000 Signed Impressions: Service Date/Time: Saturday, October 29, 2016 08:19 - CONCLUSION: Mild streaky parenchymal changes in the right lung base suggestive of pneumonia. Carlin Kramer MD Ankle X-Ray 10/29/16 0000 Signed Impressions: Service Date/Time: Saturday, October 29, 2016 14:17 - CONCLUSION: Mild generalized soft tissue swelling. Otherwise negative. Eduardo Gurrola MD Head CT 10/28/16 1421 Signed Impressions: Service Date/Time: Friday, October 28, 2016 14:56 - CONCLUSION: Intracranially with diffuse deep white matter periventricular microvascular ischemic demyelination and atrophy. No acute abnormality. Bilateral ethmoid sinus disease mucoperiosteal thickening and air-fluid level in the left maxillary sinus Eduardo Gurrola MD Objective Remarks GENERAL: Well-developed, undernourished elderly white male lying in bed appearing confused but pleasant and in no acute distress CARDIOVASCULAR: NRRR. Normal S1/S2. No MRG RESPIRATORY: Breath sounds clear anteriorly. No crackles or wheezes. GASTROINTESTINAL: Abdomen soft, non-distended, non-tender. MUSCULOSKELETAL: Extremities without cyanosis or edema. NEUROLOGICAL: Drowsy this morning but will awaken to voice. Severely demented, no interval change from prior exams. Medications and IVs Current Medications Medications (Trade) Dose Ordered Sig/Bhupendra Route Start Time Stop Time Status Last Admin (Depakote Er) 250 mg DAILY PO 10/29/16 09:00 10/30/16 08:52 (Colace) 100 mg BID PO 10/28/16 21:00 10/30/16 08:52 (Theragran) 1 tab DAILY PO 10/29/16 09:00 10/30/16 08:52 (ZyPREXA) 2.5 mg HS PO 10/28/16 21:00 10/29/16 20:51 (ZyPREXA) 5 mg BID PO 10/28/16 21:00 10/30/16 08:52 (Exelon 4.6 Mg Patch.24hr) 1 patch DAILY T-DERMAL 10/29/16 09:00 10/30/16 08:52 (NS Flush) 2 ml UNSCH PRN FLUSH 10/28/16 17:45 (NS Flush) 2 ml BID FLUSH 10/28/16 21:00 10/29/16 20:51 (Roxicodone) 10 mg Q4H PRN PO 10/28/16 17:45 10/29/16 20:52 Oxycodone HCl 5 mg 5 mg Q4H PRN PO 10/28/16 17:45 (Rocephin Inj/NS Inj) 100 ml @ 200 mls/hr Q24H IV 10/29/16 17:00 10/29/16 19:45 Divalproex Sodium 500 mg 500 mg HS PO 10/28/16 21:00 10/29/16 20:51 (Zithromax Inj/ NS 250 ml Inj) 250 ml @ 250 mls/hr Q24H IV 10/30/16 12:00 (Vitamin D3) 1,000 units DAILY PO 10/30/16 09:00 10/30/16 08:52 (Frank Martini MD R1) A/P Assessment and Plan 76-year-old male with largely unknown past medical history besides dementia and severe Parkinson's disease presenting with: Discharge Planning Pending discussion with palliative care, possibly hospice (Frank Martini MD R1) Attending Attestation Patient seen and examined. Case reviewed and discussed Agree with plan of care as discussed with me and documented in the resident note. (Rhonda Armstrong MD) Problem List: (1) Altered mental status Status: Acute Plan: After speaking to , patient has been at this level of mentation for about 6 months. He had been worked up at [facility] with no underlying cause identified per : no formal diagnosis of Parkinson's or Alzheimer's disease. Has had several brain scans ( thinks MRI) and has never been told he had a stroke. Urinalysis showing moderate leuk esterase, many white blood cells CXR negative for pneumonia Right foot XR negative for fracture CT head negative for acute intracranial bleed * Ceftriaxone 1 g IV every 24 hours to cover UTI * Follow up urine culture * IV Tylenol every 6 hours 1 g scheduled * Oxycodone when necessary pain based on nursing assessment * Soft limb restraints as needed given that patient is continually trying to get out of bed due to significant fall risk * Bed rest with bed rest precautions * Hold offending medications (lorazepam) * Frequent redirection, goals to prevent sundowning * Turn patient every 2 hours to prevent worsening of existing decubitus ulcer ( stage 1 on admission) (2) Urinary tract infection Status: Acute Plan: Rocephin as above, f/u urine Cx (3) Frequent falls Status: Chronic Plan: Mostly mechanical, no evidence at this time of other etiology * PT evaluate and treat * Case management to assist with placement on discharge * Further goals of care pending discussion with family (4) Dementia Status: Chronic Plan: See "Altered Mental Status" above * Continue home antipsychotic medications: Depakote, olanzapine * Palliative care consulted, appreciate their assistance * Patient NO CODE DNR * Palliative care to have family meeting today around 1300 (Frank Martini MD R1) Problem Qualifiers (1) Altered mental status: Qualified Code: R41.0 - Delirium (2) Urinary tract infection: Qualified Code: N30.01 - Acute cystitis with hematuria (3) Dementia: Qualified Code: 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
[2016-10-30] MEDS ORDERED: AZITHROMYCIN INJ 250 MG in SODIUM CHLOR 0.9% 250 ML INJ 250 ML IV SCH (12:00)
[2016-10-30] MEDS: LEVOFLOXACIN 750 MG TAB PO SCH (16:22)
--- NOTE | 2016-10-30 17:15 | HHI.HCPN ---
Reason for visit a. To assist with evaluation and management of symptoms including: Pain, confusion, agitation b. To assist medical decision maker(s) with: better understanding of current medical conditions; weighing benefits/burdens of medical treatment options; making medical treatment decisions. . Subjective/Interval History Mr. Hamilton is a 76-year-old male who presented to [place] ED for evaluation AMS. Patient has a history of frequent falls, three with the past 7 days per facility staff. He is cachectic, despite good appetite. The patient's reports the patient has lost approximately 30 pounds in less than a year. Mr. Hamilton remains confused today with soft restraints in place. Oriented to self only, patient does not know his of 46 years or his sister. Patient will intermittently answer questions, but speech is often nonsensical. Afebrile. White blood count within normal limits. Blood cultures showing no growth in 2 days. Patient continues treatment for UTI, ceftriaxone 1 g IV every 24 hours. . Family/friend interactions . Met with patient's and sister at bedside and privately. Patient will likely be discharged to facility with hospice - family had scheduled an appointment to meet with [facility] prior to this hospitalization. . Advance Directives Living Will: Never completed Health Care Surrogate: Never completed Durable Power of Computer Network Support Specialist: Never completed Advance Directive Specifics Documented care wishes: No written advanced directives have been completed. . Significant change in goals: Patient will likely be discharged to facility with hospice - family had scheduled an appointment to meet with [facility] prior to this hospitalization. Objective Vital Signs Date Time Temp Pulse Resp B/P Pulse Ox O2 Delivery O2 Flow Rate FiO2 10/30/16 16:00 96.0 72 20 156/84 96 10/30/16 12:00 96.4 64 20 147/81 100 10/30/16 08:00 96.4 91 20 143/78 91 10/30/16 04:00 97.4 70 20 155/95 100 10/30/16 00:00 97.6 66 20 134/73 99 10/29/16 21:50 20 10/29/16 20:00 97.3 65 18 137/81 100 10/29/16 20:00 82 10/29/16 18:18 98.3 63 18 152/79 98 Intake & Output 12/29/16 12/29/16 07:00 19:00 Intake Total 480 ml 720 ml Balance 480 ml 720 ml Intake Oral 360 ml 720 ml IV Total 120 ml # Voids 6 4 # Bowel Movements 1 0 . Physical Exam CONSTITUTIONAL/GENERAL: This is a frail, cachectic male patient in no acute distress TUBES/LINES/DRAINS: PIV x 1, soft restraints. SKIN: Skin warm and dry, pale. Multiple abrasions. HEAD: Atraumatic. Normocephalic. EYES: Pupils equal and round and reactive. No scleral icterus. No injection or drainage. Fundi not examined. ENT: Hearing grossly normal. Nose without bleeding or purulent drainage. NECK: Trachea midline. CARDIOVASCULAR: Regular rate and rhythm. No JVD. Peripheral pulses symmetric. RESPIRATORY/CHEST: Symmetric, unlabored respirations. GASTROINTESTINAL: Abdomen soft, non-tender, nondistended. No guarding. Bowel sounds present. GENITOURINARY: Without palpable bladder distension. MUSCULOSKELETAL: Extremities without clubbing, cyanosis, or edema. LYMPHATICS: No palpable cervical or supraclavicular adenopathy. NEUROLOGICAL: Oriented to self only, pleasantly confused. Nonsensical speech. PSYCHIATRIC: No obvious anxiety/depression observed at the time of examination. . Diagnostic Tests Laboratory Laboratory Tests Test 10/28/16 10/28/16 10/28/16 10/29/16 14:52 15:27 18:19 07:27 White Blood Count 6.9 TH/MM3 6.1 TH/MM3 (4.0-11.0) (4.0-11.0) Red Blood Count 4.20 MIL/MM3 4.15 MIL/MM3 (4.50-5.90) (4.50-5.90) Hemoglobin 13.9 GM/DL 13.5 GM/DL (13.0-17.0) (13.0-17.0) Hematocrit 39.5 % 39.1 % (39.0-51.0) (39.0-51.0) Mean Corpuscular Volume 94.1 FL 94.1 FL (80.0-100.0) (80.0-100.0) Mean Corpuscular Hemoglobin 33.2 PG 32.6 PG (27.0-34.0) (27.0-34.0) Mean Corpuscular Hemoglobin 35.3 % 34.6 % Concent (32.0-36.0) (32.0-36.0) Red Cell Distribution Width 14.7 % 14.3 % (11.6-17.2) (11.6-17.2) Platelet Count 222 TH/MM3 207 TH/MM3 (150-450) (150-450) Mean Platelet Volume 8.5 FL 8.2 FL (7.0-11.0) (7.0-11.0) Neutrophils (%) (Auto) 77.0 % 69.6 % (16.0-70.0) (16.0-70.0) Lymphocytes (%) (Auto) 14.2 % 18.9 % (9.0-44.0) (9.0-44.0) Monocytes (%) (Auto) 8.0 % (0.0-8.0) 10.1 % (0.0-8.0) Eosinophils (%) (Auto) 0.1 % (0.0-4.0) 0.8 % (0.0-4.0) Basophils (%) (Auto) 0.7 % (0.0-2.0) 0.6 % (0.0-2.0) Neutrophils # (Auto) 5.3 TH/MM3 4.2 TH/MM3 (1.8-7.7) (1.8-7.7) Lymphocytes # (Auto) 1.0 TH/MM3 1.1 TH/MM3 (1.0-4.8) (1.0-4.8) Monocytes # (Auto) 0.6 TH/MM3 0.6 TH/MM3 (0-0.9) (0-0.9) Eosinophils # (Auto) 0.0 TH/MM3 0.0 TH/MM3 (0-0.4) (0-0.4) Basophils # (Auto) 0.0 TH/MM3 0.0 TH/MM3 (0-0.2) (0-0.2) CBC Comment DIFF FINAL DIFF FINAL Differential Comment Sodium Level 138 MEQ/L 138 MEQ/L (136-145) (136-145) Potassium Level 4.1 MEQ/L 3.3 MEQ/L (3.5-5.1) (3.5-5.1) Chloride Level 104 MEQ/L 103 MEQ/L (98-107) (98-107) Carbon Dioxide Level 26.9 MEQ/L 27.0 MEQ/L (21.0-32.0) (21.0-32.0) Anion Gap 7 MEQ/L (5-15) 8 MEQ/L (5-15) Blood Urea Nitrogen 31 MG/DL (7-18) 21 MG/DL (7-18) Creatinine 0.70 MG/DL 0.50 MG/DL (0.60-1.30) (0.60-1.30) Estimat Glomerular Filtration 110 ML/MIN 162 ML/MIN Rate (>89) (>89) Random Glucose 84 MG/DL 77 MG/DL (74-106) (74-106) Calcium Level 8.9 MG/DL 8.4 MG/DL (8.5-10.1) (8.5-10.1) Total Bilirubin 0.4 MG/DL (0.2-1.0) Aspartate Amino Transf 137 U/L (15-37) (AST/SGOT) Alanine Aminotransferase 71 U/L (12-78) (ALT/SGPT) Alkaline Phosphatase 102 U/L (45-117) Ammonia 14 MCMOL/L (11-32) Total Protein 6.7 GM/DL (6.4-8.2) Albumin 2.6 GM/DL (3.4-5.0) Valproic Acid (Depakene) Level 18 MCG/ML (50-100) Urine Color YELLOW (YELLW/STRAW) Urine Turbidity CLOUDY (CLEAR) Urine pH 7.0 (5.0-8.5) Urine Specific [place] 1.031 (1.002-1.035) Urine Protein 30 mg/dL (NEG-TRACE) Urine Glucose (UA) NEG mg/dL (NEG) Urine Ketones 10 mg/dL (NEG) Urine Occult Blood SMALL (NEG) Urine Nitrite NEG (NEG) Urine Bilirubin NEG (NEG) Urine Urobilinogen 2.0 MG/DL (LESS THAN 2.0) Urine Leukocyte Esterase MOD (NEG) Urine RBC 25 /hpf (0-3) Urine WBC 34 /hpf (0-5) Urine WBC Clumps FEW (NONE) Urine Squamous Epithelial <1 /hpf (0-5) Cells Urine Triple Phosphate FEW /hpf (NONE) Crystals Urine Bacteria OCC /hpf (NONE) Urine Mucus FEW /lpf (OCC) Urine Yeast (Budding) MANY (NONE) Microscopic Urinalysis Comment CULTURE INDICATED Troponin I LESS THAN 0.02 NG/ML (0.02-0.05) Vitamin B12 Level PG/ML (193-986) 25-Hydroxy Vitamin D Total 19.0 ng/ML (30-100) Test 10/30/16 06:36 Potassium Level 4.1 MEQ/L (3.5-5.1) Blood Urea Nitrogen 16 MG/DL (7-18) Creatinine 0.50 MG/DL (0.60-1.30) Estimat Glomerular Filtration 162 ML/MIN Rate (>89) . Result Diagram: 10/29/16 0727 10/30/16 0636 Microbiology Microbiology Date/Time Procedure Status Source Growth 10/28/16 15:27 Urine Culture - Final Complete Urine Clean Catch 50-100,000 CFU/ML MIXED GRAM POSITIVE... 10/28/16 18:02 Aerobic Blood Culture - Preliminary Resulted Blood Peripheral NO GROWTH IN 2 DAYS 10/28/16 18:02 Anaerobic Blood Culture - Preliminary Resulted Blood Peripheral NO GROWTH IN 2 DAYS 10/29/16 20:49 Aerobic Blood Culture - Preliminary Resulted Blood Peripheral NO GROWTH IN 1 DAY 10/29/16 20:49 Anaerobic Blood Culture - Preliminary Resulted Blood Peripheral NO GROWTH IN 1 DAY . Imaging Last 72 hours Impressions Chest X-Ray 10/29/16 0000 Signed Impressions: Service Date/Time: Saturday, October 29, 2016 08:19 - CONCLUSION: Mild streaky parenchymal changes in the right lung base suggestive of pneumonia. Carlin Kramer MD Ankle X-Ray 10/29/16 0000 Signed Impressions: Service Date/Time: Saturday, October 29, 2016 14:17 - CONCLUSION: Mild generalized soft tissue swelling. Otherwise negative. Eduardo Gurrola MD Head CT 10/28/16 1421 Signed Impressions: Service Date/Time: Friday, October 28, 2016 14:56 - CONCLUSION: Intracranially with diffuse deep white matter periventricular microvascular ischemic demyelination and atrophy. No acute abnormality. Bilateral ethmoid sinus disease mucoperiosteal thickening and air-fluid level in the left maxillary sinus Eduardo Gurrola MD . Assessment and Plan Disease Oriented Problem List: (1) Dementia (2) Urinary tract infection (3) Frequent falls Symptom Scale: (1) Altered mental status Comment: Patient remains confused, in soft restraints with a sitter at bedside. Physical therapy and speech therapy have been consulted. Speech therapy administered a modified [facility] mental examination (SLUMS) , excluding written portions. The patient achieved a score of 0/24 points which is indicative of severe neurocognitive disorder/dementia. . (2) Pain 0-10 Scale: Unable to quantify Comment: PRN oxycodone is available q4 hours for symptom managementpain. . (3) Agitation Pertinent Non-Medical Issues Psychosocial: Patient was born in [place], but moved to [place] when he was approximately 11 years old. The patient's states he enjoyed fishing and hunting. He had 2 older brother, both before he was born (around the age of 2 years). He has one sister. The patient is to Indy Hamilton. Together they had 2 children - the patient's states one child is and they have lost contact with the other child. Spiritual: Yarsanism analy per sister Legal: Per [place] statutes, in the absence of written advanced directives healthcare proxy decision-making falls to the patient's Indy Hamilton. Ethical issues impacting care: No known ethical issues impacting care at this time. Important Contacts Indy Hamilton, spouse: [phone] . Prognosis Mr. Hamilton is a 76-year-old male with rapidly progressing dementia. Patient has had a acute decline over the past 6 months AEB a 30 pound weight, new onset agitation, 30 pound weight loss and frequent falls. Prognosis is poor. Code Status: No Code Plan * NO CODE * Decision-making: Patient is incapacitated, unable to verbalize medical treatment goals. Given the patient's severe neurocognitive disorder/dementia, it is unlikely he will retain this capacity. Per [place] statutes, in the absence of written advanced directives healthcare proxy decision making will fall to the patient's Indy Hamilton. * Goals: Discharge to facility with hospice services. * Family had a meeting scheduled with [facility] prior to this hospitalization - [facility] following patient and in frequent contact with patient' s . * Given this patient's acute decline and new onset agitation, the [facility] in [place] may not be able to re-accept this patient upon discharge. Discussed with case management. * Symptom managementpain: Patient having intermittent pain, rated 5 out of 10. Possible cause of pain may include invasive lines, multiple recent falls, bedbound status etc. PRN oxycodone is available and being used sparingly. 24 hour requirements: Oxycodone 10 mg 1; Oxycodone 5 mg 1. Palliative care will continue to monitor PRN requirements and make recommendations as appropriate. * Palliative care will continue to follow this patient to establish trust, assist with symptom management and clarification of medical treatment goals. . . Attestation To help prompt me to consider important information that might be impacting today's encounter and assessment, information from prior notes written by myself or my colleagues may have been "brought forward" into today's note. My signature on this note, however, is an attestation that I personally performed the exam, history, and/or decision-making noted today, and, unless otherwise indicated, the interactions with patient, family, and staff as well as the review of records all occurred today. I also attest that the listed assessment and stated plan reflect my best clinical judgment today based on the combination of historical information, prior notes, and today's exam/ interactions. When time spent is documented, it refers only to time spent today by the signer, or if indicated, combined time spent today by collaborating physician/nurse practitioner. . Opal Babb Oct 30, 2016 17:15
[2016-10-30] MEDS: DIVALPROEX SODIUM E.R. 500 MG TAB PO SCH (21:12)
[2016-10-30] MEDS: OLANZapine 2.5 MG TAB PO SCH (21:13)
[2016-10-30] MEDS: ENOXAPARIN SODIUM 40 MG/0.4 ML SYRINGE SQ SCH (21:13)
[2016-10-31] VITALS (8 sets, daily range): BP systolic 119–174; BP diastolic 71–89; PULSE 58–100; RESP 17–21; TEMP 96–98; O2SAT 95–98
[2016-10-31 07:12] LABS: BICARBONATE 28.9 MEQ/L (21.0-32.0); POTASSIUM 4.8 MEQ/L (3.5-5.1)
[2016-10-31 07:20] LABS: HEMATOCRIT 39.9 % (39.0-51.0); MEAN CELL VOLUME 93.2 FL (80.0-100.0); MEAN CORPUSCULAR HEMOGLOBIN 32.6 PG (27.0-34.0); PLATELET COUNT 225 TH/MM3 (150-450); RED BLOOD COUNT 4.28 MIL/MM3 (4.50-5.90); WHITE BLOOD COUNT 11.9 TH/MM3 (4.0-11.0)
[2016-10-31 08:13] LABS: HEMO FLAGS AUTO DIFF
[2016-10-31 08:48] LABS: BANDS 6 % (0-6); EOSINOPHILS 1 % (0-4); NEUTROPHIL # MANUAL DIFF 8.9 TH/MM3 (1.8-7.7); PLASMA CELLS 1 % (0-0); PLATELET ESTIMATE SMEAR NORMAL (NORMAL); PLATELET MORPHOLOGY CLUMPED (NORMAL); POLYS (SEG NEUTROPHILS) 69 % (16-70); SCAN/DIFF FINAL DIFF MANUAL; WBC DIFF SAMPLE 100
[2016-10-31] MEDS: SODIUM CHLORIDE 0.9% FLUSH 5 ML FLUSH FLUSH SCH ×2 (08:57→21:22)
[2016-10-31] MEDS: RIVASTIGMINE 4.6 MG/24 HOUR PATCH T-DERMAL SCH (08:58)
[2016-10-31] MEDS: MULTIVITAMIN TAB PO SCH (08:58)
[2016-10-31] MEDS: LEVOFLOXACIN 750 MG TAB PO SCH (08:58)
[2016-10-31] MEDS: CHOLECALCIFEROL (VIT D3) 1000 UNIT TAB PO SCH (08:58)
[2016-10-31] MEDS: OLANZapine 5 MG TAB PO SCH ×2 (08:58→21:16)
[2016-10-31] MEDS: DIVALPROEX SODIUM E.R. 250 MG TAB PO SCH (09:00)
[2016-10-31] MEDS: DOCUSATE SODIUM 100 MG CAP PO SCH ×2 (09:01→21:16)
--- NOTE | 2016-10-31 10:27 | HHI.FPPN ---
Subjective Remarks Mr. Hamilton was afebrile with intermittent hypertension overnight. Per EMR, patient voiding and stooling normally. Patient was difficult to understand this morning moving extremities frequently; consistent with prior exams. Patient oriented to self but not to surroundings. Patient did not report pain today. (Donovan Oconnell MD R2) Objective Vitals Vital Signs Date Time Temp Pulse Resp B/P Pulse Ox O2 Delivery O2 Flow Rate FiO2 10/31/16 07:56 96.7 100 20 174/89 97 10/31/16 04:34 97.6 59 17 162/87 96 10/31/16 00:14 96.0 63 18 151/83 98 10/30/16 20:26 98.0 80 20 165/86 96 10/30/16 20:00 68 10/30/16 17:48 63 10/30/16 16:00 96.0 72 20 156/84 96 10/30/16 12:00 96.4 64 20 147/81 100 I/O 10/30/16 10/30/16 10/30/16 10/31/16 10/31/16 10/31/16 07:00 15:00 23:00 07:00 15:00 23:00 Intake Total 240 ml 720 ml Balance 240 ml 720 ml Intake Oral 120 ml 720 ml IV Total 120 ml # Voids 4 3 1 7 # Bowel Movements 1 0 0 (Donovan Oconnell MD R2) Result Diagram: 10/31/16 0635 10/31/16 0635 Imaging Last Impressions Chest X-Ray 10/29/16 0000 Signed Impressions: Service Date/Time: Saturday, October 29, 2016 08:19 - CONCLUSION: Mild streaky parenchymal changes in the right lung base suggestive of pneumonia. Carlin Kramer MD Ankle X-Ray 10/29/16 0000 Signed Impressions: Service Date/Time: Saturday, October 29, 2016 14:17 - CONCLUSION: Mild generalized soft tissue swelling. Otherwise negative. Eduardo Gurrola MD Head CT 10/28/16 1421 Signed Impressions: Service Date/Time: Friday, October 28, 2016 14:56 - CONCLUSION: Intracranially with diffuse deep white matter periventricular microvascular ischemic demyelination and atrophy. No acute abnormality. Bilateral ethmoid sinus disease mucoperiosteal thickening and air-fluid level in the left maxillary sinus Eduardo Gurrola MD Objective Remarks GENERAL: Well-developed, undernourished elderly white male lying in bed appearing confused but pleasant and in no acute distress CARDIOVASCULAR: NRRR. Normal S1/S2. No murmurs RESPIRATORY: Normal rate. Breath sounds clear anteriorly. No crackles or wheezes. GASTROINTESTINAL: Abdomen soft, non-distended, non-tender. MUSCULOSKELETAL: Extremities without cyanosis or edema. NEUROLOGICAL: Severely demented, no interval change from prior exams. No focal cranial nerve or peripheral motor/sensory deficits appreciated. (Donovan Oconnell MD R2) A/P Assessment and Plan 76-year-old male with largely unknown past medical history besides dementia and severe Parkinson's disease presenting with: Discharge Planning Pending discussion with palliative care, possibly hospice (Donovan Oconnell MD R2) Attending Attestation Patient seen and examined. Case reviewed and discussed Agree with plan of care as discussed with me and documented in the resident note. (Rhonda Armstrong MD) Problem List: (1) Altered mental status Status: Acute Plan: -Will check MRI -Will check B12, TSH -B12 pending (reagent pending from it audit manager) -Will consult Neuro based on MRI imaging -Bed rest precautions -Restraints as needed to prevent falls if essential, but will attempt sitter with redirection -DVT PPX while in bed; attempt frequent repositioning -OT- patient dependent on assistance -Palliative care consulted Impression: Dementia for ~ 6 months. History of disease per has been seemingly inconsistent; patient either has been seen in [facility] several times w/o complete workup or had full evaluation in an [facility]. No formal diagnosis CT head negative for acute intracranial bleed (2) Dementia Status: Chronic Plan: See "Altered Mental Status" above * Continue home antipsychotic medications: Depakote, olanzapine * Palliative care consulted, appreciate their assistance * Patient NO CODE DNR (3) Pneumonia Status: Acute Plan: Levaquin 750 mg daily Impression: CXR 10/29: Mild streaky parenchymal changes in the right lung base suggestive of pneumonia. Leukocytosis (11.9) 10/31. No visible respiratory symptoms (4) Urinary tract infection Status: Resolved Plan: Ceftriaxone 1 g IV every 24 hours to cover UTI Impression: Urinalysis showing moderate leuk esterase, many white blood cells Urine culture: 72955 K mixed gram-positive juliano; suspect contaminant (5) Frequent falls Status: Chronic Plan: Mostly mechanical, no evidence at this time of other etiology * PT-rehab recommended * Case management to assist with placement on discharge * Further goals of care pending discussion with family * Ankle XR: soft tissue injury (6) DVT PPX Status: Acute Plan: Enoxaparin 40 mg daily SCDs (7) Fluids, Electrolytes, and Nutrition Status: Acute Plan: Fluids: None at this time Electrolytes: Monitor and replete as needed Diet: Regular basic diet (Donovan Oconnell MD R2) Problem Qualifiers (1) Altered mental status: Qualified Code: R41.0 - Delirium (2) Dementia: Qualified Code: 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
[2016-10-31] MEDS ORDERED: LORazepam 0.5 MG TAB PO PRN (10:30)
--- NOTE | 2016-10-31 16:38 | RADRPT ---
EXAM DATE/TIME: 10/31/2016 16:11 [facility] COMPARISON: CT BRAIN W/O CONTRAST, October 28, 2016, 14:56. INDICATIONS : Frequent falls. MEDICAL HISTORY : Dementia. SURGICAL HISTORY : None. ENCOUNTER: Initial ACUITY: 2 day PAIN SCORE: 0/10 LOCATION: Head TECHNIQUE: Multiplanar, multisequence MRI of the brain was performed without contrast. FINDINGS: CEREBRUM: The ventricles are prominent as are sulci consistent with atrophy.. No evidence of midline shift, ma ss lesion, hemorrhage or acute infarction. No extraaxial fluid collections are seen. The pituitary gland and suprasellar cistern are normal in configuration. WHITE MATTER: Extensive periventricular and mild deep white matter microvascular ischemic demineralization. POSTERIOR FOSSA: The cerebellum and brainstem are intact. The 4th ventricle is midline. The cerebellopontine angle is unremarkable. The cerebellar tonsils are normal in position. DIFFUSION IMAGING: No focal areas of restricted diffusion are seen. No evidence of acute infarction. EXTRACRANIAL: The visualized portions of the orbits and paranasal sinuses are unremarkable. Maxillary and ethmoid s inus disease as described in the CT brain scan. CONCLUSION: No acute intracranial abnormality. Atrophy with extensive periventricular and mild deep white matter microvascular ischemic myelinization. Eduardo Gurrola MD on October 31, 2016 at 16:34 Board Certified Radiologist. This report was verified electronically.
[2016-10-31] MEDS: ENOXAPARIN SODIUM 40 MG/0.4 ML SYRINGE SQ SCH (21:16)
[2016-10-31] MEDS: OLANZapine 2.5 MG TAB PO SCH (21:16)
[2016-10-31] MEDS: DIVALPROEX SODIUM E.R. 500 MG TAB PO SCH (21:21)
[2016-11-01 04:00] VITALS: BP 143/79; PULSE 63; RESP 21; TEMP 96.7; O2SAT 96
[2016-11-01 08:00] VITALS: BP 112/82; PULSE 96; RESP 18; TEMP 97.1
[2016-11-01] MEDS: LEVOFLOXACIN 750 MG TAB PO SCH (08:14)
[2016-11-01] MEDS: DOCUSATE SODIUM 100 MG CAP PO SCH ×2 (08:14→20:31)
[2016-11-01] MEDS: CHOLECALCIFEROL (VIT D3) 1000 UNIT TAB PO SCH (08:15)
[2016-11-01] MEDS: MULTIVITAMIN TAB PO SCH (08:15)
[2016-11-01] MEDS: OLANZapine 5 MG TAB PO SCH ×2 (08:15→20:31)
[2016-11-01] MEDS: RIVASTIGMINE 4.6 MG/24 HOUR PATCH T-DERMAL SCH (08:19)
[2016-11-01] MEDS: DIVALPROEX SODIUM E.R. 250 MG TAB PO SCH (08:37)
[2016-11-01] MEDS: SODIUM CHLORIDE 0.9% FLUSH 5 ML FLUSH FLUSH SCH ×2 (09:00→20:31)
[2016-11-01 09:17] LABS: AUTOMATED NEUTROPHIL # 5.5 TH/MM3 (1.8-7.7); BASOPHIL % 0.6 % (0.0-2.0); EOSINOPHIL % 0.4 % (0.0-4.0); HEMATOCRIT 41.9 % (39.0-51.0); HEMO FLAGS DIFF FINAL; LYMPH % 17.5 % (9.0-44.0); LYMPHOCYTE # 1.3 TH/MM3 (1.0-4.8); MEAN CELL VOLUME 94.7 FL (80.0-100.0); MEAN CORPUSCULAR HEMOGLOBIN 32.2 PG (27.0-34.0); MONO % 6.5 % (0.0-8.0); PLATELET COUNT 334 TH/MM3 (150-450); RED BLOOD COUNT 4.42 MIL/MM3 (4.50-5.90); RED CELL DISTRIBUTION WIDTH 14.4 % (11.6-17.2); WHITE BLOOD COUNT 7.3 TH/MM3 (4.0-11.0)
--- NOTE | 2016-11-01 09:22 | HHI.FPPN ---
Subjective Remarks No acute events overnight. Afebrile, vitals wnl and stable except one BP of approx 160. Subjective remarks limited due to underlying dementia/aphasia. Says he keeps having people come into his room and waking him up. Otherwise says he' s fine this morning. Objective Vitals Vital Signs Date Time Temp Pulse Resp B/P Pulse Ox O2 Delivery O2 Flow Rate FiO2 11/01/16 04:00 96.7 63 21 143/79 96 10/31/16 22:30 69 10/31/16 20:28 96.6 76 21 169/81 98 10/31/16 15:35 98.0 80 20 119/71 96 10/31/16 11:55 96.8 67 20 131/74 95 I/O 10/31/16 10/31/16 10/31/16 11/01/16 11/01/16 11/01/16 06:59 14:59 22:59 06:59 14:59 22:59 Intake Total 1200 ml Balance 1200 ml Intake Oral 1200 ml # Voids 7 2 1 # Bowel Movements 0 0 0 Result Diagram: 10/31/16 0635 10/31/16 0635 Imaging Last Impressions Brain MRI 10/31/16 0000 Signed Impressions: Service Date/Time: Monday, October 31, 2016 16:11 - CONCLUSION: No acute intracranial abnormality. Atrophy with extensive periventricular and mild deep white matter microvascular ischemic myelinization. Eduardo Gurrola MD Chest X-Ray 10/29/16 0000 Signed Impressions: Service Date/Time: Saturday, October 29, 2016 08:19 - CONCLUSION: Mild streaky parenchymal changes in the right lung base suggestive of pneumonia. Carlin Kramer MD Ankle X-Ray 10/29/16 0000 Signed Impressions: Service Date/Time: Saturday, October 29, 2016 14:17 - CONCLUSION: Mild generalized soft tissue swelling. Otherwise negative. Eduardo Gurrola MD Head CT 10/28/16 1421 Signed Impressions: Service Date/Time: Friday, October 28, 2016 14:56 - CONCLUSION: Intracranially with diffuse deep white matter periventricular microvascular ischemic demyelination and atrophy. No acute abnormality. Bilateral ethmoid sinus disease mucoperiosteal thickening and air-fluid level in the left maxillary sinus Eduardo Gurrola MD Objective Remarks GENERAL: Well-developed, undernourished elderly white male sitting up in chair at [facility] and in no acute distress CARDIOVASCULAR: NRRR. Normal S1/S2. No murmurs RESPIRATORY: Normal rate. Breath sounds clear anteriorly. No crackles or wheezes. GASTROINTESTINAL: Abdomen non-distended. MUSCULOSKELETAL: Extremities without cyanosis or edema. NEUROLOGICAL: Severely demented/aphasic, no interval change from prior exams. No focal cranial nerve or peripheral motor/sensory deficits appreciated. Medications and IVs Current Medications Medications (Trade) Dose Ordered Sig/Bhupendra Route Start Time Stop Time Status Last Admin (Depakote Er) 250 mg DAILY PO 10/29/16 09:00 11/01/16 08:37 (Colace) 100 mg BID PO 10/28/16 21:00 11/01/16 08:14 (Theragran) 1 tab DAILY PO 10/29/16 09:00 11/01/16 08:15 (ZyPREXA) 2.5 mg HS PO 10/28/16 21:00 10/31/16 21:16 (ZyPREXA) 5 mg BID PO 10/28/16 21:00 11/01/16 08:15 (Exelon 4.6 Mg Patch.24hr) 1 patch DAILY T-DERMAL 10/29/16 09:00 11/01/16 08:19 (NS Flush) 2 ml UNSCH PRN FLUSH 10/28/16 17:45 (NS Flush) 2 ml BID FLUSH 10/28/16 21:00 10/29/16 20:51 (Roxicodone) 10 mg Q4H PRN PO 10/28/16 17:45 10/29/16 20:52 (Roxicodone) 5 mg Q4H PRN PO 10/28/16 17:45 10/30/16 16:22 (Depakote Er) 500 mg HS PO 10/28/16 21:00 10/31/16 21:21 (Vitamin D3) 1,000 units DAILY PO 10/30/16 09:00 11/01/16 08:15 (Levaquin) 750 mg DAILY PO 10/30/16 16:00 11/01/16 08:14 (Lovenox Inj) 40 mg Q24H SQ 10/30/16 21:00 10/31/16 21:16 A/P Assessment and Plan 76-year-old male with largely unknown past medical history besides dementia and severe Parkinson's disease presenting with: Discharge Planning Pending discussion with palliative care, possibly hospice Problem List: (1) Altered mental status Status: Acute Plan: Dementia for ~ 6 months. History of disease per has been seemingly inconsistent; patient either has been seen in [facility] several times w/o complete workup or had full evaluation in an [facility]. No formal diagnosis CT head negative for acute intracranial bleed Brain MRI showing atrophy with periventricular and deep white matter ischemic myelinization, no acute process -Will check B12, TSH -RPR ordered and pending -Will discuss and clarify with , unlikely to be a reversible cause of dementia -Bed rest precautions -Restraints as needed to prevent falls if essential, but will attempt sitter with redirection -DVT PPX while in bed; attempt frequent repositioning -OT- patient dependent on assistance -Palliative care consulted, appreciate their recommendations -Hospice on board with family, discussion re: placement ongoing (2) Dementia Status: Chronic Plan: See "Altered Mental Status" above * Continue home antipsychotic medications: Depakote, olanzapine * Palliative care consulted, appreciate their assistance * Patient NO CODE DNR (3) Pneumonia Status: Acute Plan: CXR 10/29: Mild streaky parenchymal changes in the right lung base suggestive of pneumonia. Leukocytosis (11.9) 10/31. No visible respiratory symptoms * Continue Levaquin 750 mg PO daily (4) Urinary tract infection Status: Resolved Plan: Urinalysis showing moderate leuk esterase, many white blood cells Urine culture: 35068 K mixed gram-positive juliano; suspect contaminant S/p 3 days Rocephin Discontinue given culture growth of contaminant juliano (5) Frequent falls Status: Chronic Plan: Mostly mechanical, no evidence at this time of other etiology Ankle XR: soft tissue injury * PT-rehab recommended * Case management to assist with placement on discharge * Ongoing discussion with family re: hospice versus rehab versus return to [facility] (6) DVT PPX Status: Acute Plan: Enoxaparin 40 mg daily SCDs (7) Fluids, Electrolytes, and Nutrition Status: Acute Plan: Fluids: None at this time Electrolytes: Monitor and replete as needed Diet: Regular basic diet Problem Qualifiers (1) Altered mental status: Qualified Code: R41.0 - Delirium (2) Dementia: Qualified Code: 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
[2016-11-01 09:40] LABS: BICARBONATE 25.5 MEQ/L (21.0-32.0); POTASSIUM 4.2 MEQ/L (3.5-5.1)
[2016-11-01 12:00] VITALS: BP 116/76; PULSE 75; RESP 18; TEMP 96.2
[2016-11-01 16:00] VITALS: BP 141/89; PULSE 72; RESP 18; TEMP 98.1; O2SAT 95
[2016-11-01] MEDS ORDERED: HALOPERIDOL LACTATE 5 MG/ML AMP IM ONE (20:15)
[2016-11-01] MEDS: OLANZapine 2.5 MG TAB PO SCH (20:31)
[2016-11-01] MEDS: ENOXAPARIN SODIUM 40 MG/0.4 ML SYRINGE SQ SCH (20:31)
[2016-11-01 20:53] VITALS: BP 144/64; PULSE 124; RESP 18; TEMP 97.6; O2SAT 99
[2016-11-01] MEDS: DIVALPROEX SODIUM E.R. 500 MG TAB PO SCH (20:59)
[2016-11-01 23:49] VITALS: BP 146/74; PULSE 70; RESP 18; TEMP 97.8; O2SAT 100
[2016-11-02] VITALS (8 sets, daily range): BP systolic 106–178; BP diastolic 72–96; PULSE 51–100; RESP 18–20; TEMP 95–97.8; O2SAT 99–100
--- NOTE | 2016-11-02 05:04 | MB ---
cc: FAMILIA CAVAZOS MD DATE OF CONSULTATION: 11/01/2016 REASON FOR CONSULTATION: ' Patient with severe dementia and aphasia, chronic with subacute worsening over the last 6 months, unclear prior workup per . He has had various scans but per no other testing and carries no formal diagnosis of Alzheimer's, Parkinson's, etc. MRI showing atrophy and chronic white matter changes. 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 The patient was sitting at the nurses station, disoriented and not a good historian, presently demented. All the data is obtained from the medical records. The patient has been seen in [facility] many times in the last several months for falls and continued to deteriorate. Now he is having times where there is worsening confusion and agitation. REVIEW OF SYSTEMS Unobtainable, because of the patient's condition. PAST MEDICAL HISTORY 1. Parkinson's disease. 2. Dementia. PAST SURGICAL HISTORY: Unobtainable. MEDICATIONS: 3. Exelon patch. 4. Vitamins. 5. Olanzapine. 6. Melatonin. 7. Ativan. 8. Depakote ER. 9. Colace. 10. Tylenol. ALLERGIES: No known allergies. FAMILY HISTORY: Unobtainable. SOCIAL HISTORY: Unobtainable. PHYSICAL EXAMINATION: General: Well-developed, undernourished, sitting in a chair at the nursing station during my encounter, pleasantly demented, in no acute distress, mumbles a few words, answers incorrectly to most of the questions. HEENT: Atraumatic, normocephalic. Intact hearing and intact vision. Neck: Supple. No lymphadenopathy. No carotid bruits. Cardiovascular: Normal sinus rhythm. Respiratory: Clear to auscultation bilaterally. No wheezes. Musculoskeletal: Moves all extremities without cyanosis or edema. Neurological: Awake, not oriented to person, place or time, unable to assess higher cortical function because the patient is demented. Cranial nerves II-XII are grossly intact. Positive blink reflex (Myerson sign). Muscle strength cannot be assessed because of lack of cooperation due to dementia, however, there is noted cogwheel rigidity in the bilateral upper extremities greater than the lower extremities, mild coarse tremor in both hands is noted. Sensation, cerebellar function cannot be accurately assessed because of the lack of cooperation due to dementia, reflexes 1+ bilaterally and symmetrical. DIAGNOSTIC STUDIES Head CT scan, intracranial with diffuse deep white matter, periventricular microvascular ischemic demyelination and atrophy. No acute abnormality. Brain MRI without contrast with no acute intracranial abnormality, atrophy and extensive periventricular and mild deep white matter microvascular ischemic demyelinization. DIAGNOSTIC IMPRESSION 1. Parkinson disease. 2. Parkinson's dementia. PLAN: Neuro checks q4 hourly. As per 's request, for the treatable causes of dementia, we can pursue thyroid function test, B12 and folate levels in the blood Consider psychiatric and behavioral therapy assessment. Consider outpatient extensive cognitive assessment. PT/OT recommendations are appreciated. Fall precautions. Continue Rivastigmine patch 4.6 milligrams 24 hourly. Continue patient's home medications. Consider placement to inpatient rehab center. Thank you for the opportunity to participate in the care of your patient. MD SONU Lion/AXEL /9:08 PM /4:38 AM OXANA
[2016-11-02 08:01] LABS: AUTOMATED NEUTROPHIL # 3.3 TH/MM3 (1.8-7.7); BASOPHIL % 0.9 % (0.0-2.0); EOSINOPHIL # 0.1 TH/MM3 (0-0.4); EOSINOPHIL % 2.1 % (0.0-4.0); HEMATOCRIT 38.7 % (39.0-51.0); HEMO FLAGS DIFF FINAL; LYMPH % 23.4 % (9.0-44.0); LYMPHOCYTE # 1.2 TH/MM3 (1.0-4.8); MEAN CELL VOLUME 93.2 FL (80.0-100.0); MEAN CORPUSCULAR HEMOGLOBIN 32.8 PG (27.0-34.0); MEAN CORPUSCULAR HGB CONC 35.2 % (32.0-36.0); MONO % 11.7 % (0.0-8.0); NEUT % 61.9 % (16.0-70.0); PLATELET COUNT 318 TH/MM3 (150-450); RED BLOOD COUNT 4.15 MIL/MM3 (4.50-5.90); RED CELL DISTRIBUTION WIDTH 14.2 % (11.6-17.2); WHITE BLOOD COUNT 5.3 TH/MM3 (4.0-11.0)
[2016-11-02 08:49] LABS: BICARBONATE 27.6 MEQ/L (21.0-32.0); POTASSIUM 3.9 MEQ/L (3.5-5.1)
[2016-11-02] MEDS: SODIUM CHLORIDE 0.9% FLUSH 5 ML FLUSH FLUSH SCH ×2 (09:00→21:00)
[2016-11-02] MEDS: LEVOFLOXACIN 750 MG TAB PO SCH (10:00)
[2016-11-02] MEDS: DOCUSATE SODIUM 100 MG CAP PO SCH ×2 (10:00→21:07)
[2016-11-02] MEDS: CHOLECALCIFEROL (VIT D3) 1000 UNIT TAB PO SCH (10:00)
[2016-11-02] MEDS: DIVALPROEX SODIUM E.R. 250 MG TAB PO SCH (10:00)
[2016-11-02] MEDS: MULTIVITAMIN TAB PO SCH (10:01)
[2016-11-02] MEDS: RIVASTIGMINE 4.6 MG/24 HOUR PATCH T-DERMAL SCH (10:01)
[2016-11-02] MEDS: OLANZapine 5 MG TAB PO SCH ×2 (10:01→21:07)
--- NOTE | 2016-11-02 12:48 | HHI.FPPN ---
Subjective Remarks Overnight needed 2 mg IM haloperidol due to agitation not able to be redirected. Otherwise doing well today, still not verbal, very confused. ( Frank Mratini MD R1) Objective Vitals Vital Signs Date Time Temp Pulse Resp B/P Pulse Ox O2 Delivery O2 Flow Rate FiO2 11/02/16 08:00 95.0 51 18 155/72 99 11/02/16 05:05 97.4 55 18 164/84 100 11/02/16 04:10 82 11/01/16 23:49 97.8 70 18 146/74 100 11/01/16 20:53 97.6 124 18 144/64 99 11/01/16 16:00 98.1 72 18 141/89 95 I/O 11/01/16 11/01/16 11/01/16 11/02/16 11/02/16 11/02/16 06:59 14:59 22:59 06:59 14:59 22:59 Intake Total 720 ml Balance 720 ml Intake Oral 720 ml # Voids 1 3 1 # Bowel Movements 0 (Frank Martini MD R1) Result Diagram: 11/02/16 0731 11/02/16 0731 Imaging Last Impressions Brain MRI 10/31/16 0000 Signed Impressions: Service Date/Time: Monday, October 31, 2016 16:11 - CONCLUSION: No acute intracranial abnormality. Atrophy with extensive periventricular and mild deep white matter microvascular ischemic myelinization. Eduardo Gurrola MD Chest X-Ray 10/29/16 0000 Signed Impressions: Service Date/Time: Saturday, October 29, 2016 08:19 - CONCLUSION: Mild streaky parenchymal changes in the right lung base suggestive of pneumonia. Carlin Kramer MD Ankle X-Ray 10/29/16 0000 Signed Impressions: Service Date/Time: Saturday, October 29, 2016 14:17 - CONCLUSION: Mild generalized soft tissue swelling. Otherwise negative. Eduardo Gurrola MD Head CT 10/28/16 1421 Signed Impressions: Service Date/Time: Friday, October 28, 2016 14:56 - CONCLUSION: Intracranially with diffuse deep white matter periventricular microvascular ischemic demyelination and atrophy. No acute abnormality. Bilateral ethmoid sinus disease mucoperiosteal thickening and air-fluid level in the left maxillary sinus Eduardo Gurrola MD Objective Remarks GENERAL: Well-developed, undernourished elderly white male sitting up in chair at nurses' station, pleasant and in no acute distress CARDIOVASCULAR: NRRR. Normal S1/S2. No murmurs SKIN: Erythematous rash diffuse on chest and back, sparing arms, non-blanching. Improved from exam yesterday afternoon. No excoriations. RESPIRATORY: Normal rate. Breath sounds clear anteriorly. No crackles or wheezes. GASTROINTESTINAL: Abdomen non-distended. MUSCULOSKELETAL: Extremities without cyanosis or edema. NEUROLOGICAL: Severely demented/aphasic, no interval change from prior exams. No focal cranial nerve or peripheral motor/sensory deficits appreciated. Medications and IVs Current Medications Medications (Trade) Dose Ordered Sig/Bhupendra Route Start Time Stop Time Status Last Admin (Depakote Er) 250 mg DAILY PO 10/29/16 09:00 11/02/16 10:00 (Colace) 100 mg BID PO 10/28/16 21:00 11/02/16 10:00 (Theragran) 1 tab DAILY PO 10/29/16 09:00 11/02/16 10:01 (ZyPREXA) 2.5 mg HS PO 10/28/16 21:00 11/01/16 20:31 (ZyPREXA) 5 mg BID PO 10/28/16 21:00 11/02/16 10:01 (Exelon 4.6 Mg Patch.24hr) 1 patch DAILY T-DERMAL 10/29/16 09:00 11/02/16 10:01 (NS Flush) 2 ml UNSCH PRN FLUSH 10/28/16 17:45 (NS Flush) 2 ml BID FLUSH 10/28/16 21:00 10/29/16 20:51 (Roxicodone) 10 mg Q4H PRN PO 10/28/16 17:45 10/29/16 20:52 (Roxicodone) 5 mg Q4H PRN PO 10/28/16 17:45 10/30/16 16:22 (Depakote Er) 500 mg HS PO 10/28/16 21:00 11/01/16 20:59 (Vitamin D3) 1,000 units DAILY PO 10/30/16 09:00 11/02/16 10:00 (Levaquin) 750 mg DAILY PO 10/30/16 16:00 11/02/16 10:00 (Lovenox Inj) 40 mg Q24H SQ 10/30/16 21:00 11/01/16 20:31 (Frank Martini MD R1) A/P Assessment and Plan 76-year-old male with largely unknown past medical history besides dementia and severe Parkinson's disease presenting with: Discharge Planning Pending discussion with palliative care and family, likely hospice (Frank Martini MD R1) Attending Attestation Patient seen and examined. Case reviewed and discussed Agree with plan of care as discussed with me and documented in the resident note. (Rhonda Armstrong MD) Problem List: (1) Altered mental status Status: Acute Plan: Dementia for ~ 6 months. History of disease per has been seemingly inconsistent; patient either has been seen in [facility] several times w/o complete workup or had full evaluation in an [facility]. No formal diagnosis CT head negative for acute intracranial bleed Brain MRI showing atrophy with periventricular and deep white matter ischemic myelinization, no acute process TSH wnl B12 pending RPR pending -Neurology consulted, appreciate their recommendations; their assessment is Parkinsonian dementia -Can consider further workup and neurocognitive eval as outpatient, but this is not likely to be of benefit. Will discuss with -Given rash, will obtain serum HSV PCR and consider starting acyclovir if positive, but even if HSV is identified, dementia is so advanced it isn't likely to be reversible -Will discuss and clarify with , unlikely to be a reversible cause of dementia -Bed rest precautions -Restraints as needed to prevent falls if essential, but will attempt sitter with redirection -DVT PPX while in bed; attempt frequent repositioning -OT- patient dependent on assistance -Palliative care consulted, appreciate their recommendations -Hospice on board with family, discussion re: placement ongoing (2) Dementia Status: Chronic Plan: See "Altered Mental Status" above * Continue home antipsychotic medications: Depakote, olanzapine * Haloperidol IM 2mg PRN uncontrolled agitation * Palliative care consulted, appreciate their assistance * Patient NO CODE DNR (3) Pneumonia Status: Acute Plan: CXR 10/29: Mild streaky parenchymal changes in the right lung base suggestive of pneumonia. Leukocytosis (11.9) 10/31. No visible respiratory symptoms * Continue Levaquin 750 mg PO daily (4) Urinary tract infection Status: Resolved Plan: Urinalysis showing moderate leuk esterase, many white blood cells Urine culture: 21992 K mixed gram-positive juliano; suspect contaminant S/p 3 days Rocephin Discontinued given culture growth of contaminant juliano (5) Frequent falls Status: Chronic Plan: Mostly mechanical, no evidence at this time of other etiology Ankle XR: soft tissue injury * PT-rehab recommended * Case management to assist with placement on discharge * Ongoing discussion with family re: hospice versus rehab versus return to [facility] (6) DVT PPX Status: Acute Plan: Enoxaparin 40 mg daily SCDs (7) Fluids, Electrolytes, and Nutrition Status: Acute Plan: Fluids: None at this time Electrolytes: Monitor and replete as needed Diet: Regular basic diet (Frank Martini MD R1) Problem Qualifiers (1) Altered mental status: Qualified Code: R41.0 - Delirium (2) Dementia: Qualified Code: 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
[2016-11-02] MEDS: DIVALPROEX SODIUM E.R. 500 MG TAB PO SCH (21:07)
[2016-11-02] MEDS: OLANZapine 2.5 MG TAB PO SCH (21:07)
[2016-11-02] MEDS: ENOXAPARIN SODIUM 40 MG/0.4 ML SYRINGE SQ SCH (21:07)
[2016-11-03] VITALS (7 sets, daily range): BP systolic 108–148; BP diastolic 65–81; PULSE 51–84; RESP 16–20; TEMP 95.8–98.1; O2SAT 95–98
[2016-11-03] MEDS: DIVALPROEX SODIUM E.R. 250 MG TAB PO SCH (08:55)
[2016-11-03] MEDS: MULTIVITAMIN TAB PO SCH (08:55)
[2016-11-03] MEDS: OLANZapine 5 MG TAB PO SCH ×2 (08:55→21:13)
[2016-11-03] MEDS: DOCUSATE SODIUM 100 MG CAP PO SCH ×2 (08:55→21:00)
[2016-11-03] MEDS: LEVOFLOXACIN 750 MG TAB PO SCH (08:55)
[2016-11-03] MEDS: RIVASTIGMINE 4.6 MG/24 HOUR PATCH T-DERMAL SCH (08:56)
[2016-11-03] MEDS: CHOLECALCIFEROL (VIT D3) 1000 UNIT TAB PO SCH (08:56)
[2016-11-03] MEDS: SODIUM CHLORIDE 0.9% FLUSH 5 ML FLUSH FLUSH SCH ×2 (08:56→21:00)
--- NOTE | 2016-11-03 11:03 | HHI.DCPOC ---
Discharge Care Plan Diagnosis: (1) Parkinson disease (2) Frequent falls (3) Dementia (4) Altered mental status (5) Pneumonia Goals to Promote Your Health * To prevent worsening of your condition and complications * To maintain your health at the optimal level Directions to Meet Your Goals Take your medications as prescribed Follow your dietary instruction Follow activity as directed Keep your appointments as scheduled Take your immunizations and boosters as scheduled If your symptoms worsen call your PCP, if no PCP go to Urgent Care Center or Emergency Room Smoking is Dangerous to Your Health. Avoid second hand smoke Call the 24-hour hour crisis hotline for domestic abuse at Donovan Oconnell MD R2 Nov 03, 2016 11:03
[2016-11-03] MEDS ORDERED: VITA100018 PO (11:05)
[2016-11-03] MEDS ORDERED: LEVA750T PO (11:05)
--- NOTE | 2016-11-03 11:06 | HHI.FPPN ---
Subjective Remarks No acute events overnight. AF, VS wnl and stable except one BP of 178/96. No concerns per who is at bedside. Objective Vitals Vital Signs Date Time Temp Pulse Resp B/P Pulse Ox O2 Delivery O2 Flow Rate FiO2 11/03/16 08:00 97.7 58 16 108/71 96 11/03/16 04:00 97.4 53 18 111/65 97 11/03/16 00:00 97.3 70 18 137/81 98 11/02/16 20:06 64 11/02/16 20:00 97.6 82 18 178/96 99 11/02/16 16:01 97.8 100 20 106/76 11/02/16 12:00 95.5 73 20 122/85 I/O 11/02/16 11/02/16 11/02/16 11/03/16 11/03/16 11/03/16 07:00 15:00 23:00 07:00 15:00 23:00 Intake Total 480 ml Output Total 2 ml Balance 480 ml -2 ml Intake Oral 480 ml Output Urine Total 2 ml # Voids 1 3 2 # Bowel Movements 0 1 Result Diagram: 11/02/16 0731 11/02/16 0731 Imaging Last Impressions Brain MRI 10/31/16 0000 Signed Impressions: Service Date/Time: Monday, October 31, 2016 16:11 - CONCLUSION: No acute intracranial abnormality. Atrophy with extensive periventricular and mild deep white matter microvascular ischemic myelinization. Eduardo Gurrola MD Chest X-Ray 10/29/16 0000 Signed Impressions: Service Date/Time: Saturday, October 29, 2016 08:19 - CONCLUSION: Mild streaky parenchymal changes in the right lung base suggestive of pneumonia. Carlin Kramer MD Ankle X-Ray 10/29/16 0000 Signed Impressions: Service Date/Time: Saturday, October 29, 2016 14:17 - CONCLUSION: Mild generalized soft tissue swelling. Otherwise negative. Eduardo Gurrola MD Head CT 10/28/16 1421 Signed Impressions: Service Date/Time: Friday, October 28, 2016 14:56 - CONCLUSION: Intracranially with diffuse deep white matter periventricular microvascular ischemic demyelination and atrophy. No acute abnormality. Bilateral ethmoid sinus disease mucoperiosteal thickening and air-fluid level in the left maxillary sinus Eduardo Gurrola MD Objective Remarks GENERAL: Well-developed, undernourished elderly white male sitting up in bed, pleasant and in no acute distress CARDIOVASCULAR: NRRR. Normal S1/S2. No murmurs SKIN: Erythematous rash diffuse on chest and back, sparing arms, non-blanching. Improved from exam yesterday morning. No excoriations. RESPIRATORY: Normal rate. Breath sounds clear anteriorly. No crackles or wheezes. GASTROINTESTINAL: Abdomen non-distended. MUSCULOSKELETAL: Extremities without cyanosis or edema. NEUROLOGICAL: Severely demented/aphasic, no interval change from prior exams. No focal cranial nerve or peripheral motor/sensory deficits appreciated. Medications and IVs Current Medications Medications (Trade) Dose Ordered Sig/Bhupendra Route Start Time Stop Time Status Last Admin (Depakote Er) 250 mg DAILY PO 10/29/16 09:00 11/03/16 08:55 (Colace) 100 mg BID PO 10/28/16 21:00 11/03/16 08:55 (Theragran) 1 tab DAILY PO 10/29/16 09:00 11/03/16 08:55 (ZyPREXA) 2.5 mg HS PO 10/28/16 21:00 11/02/16 21:07 (ZyPREXA) 5 mg BID PO 10/28/16 21:00 11/03/16 08:55 (Exelon 4.6 Mg Patch.24hr) 1 patch DAILY T-DERMAL 10/29/16 09:00 11/03/16 08:56 (NS Flush) 2 ml UNSCH PRN FLUSH 10/28/16 17:45 (NS Flush) 2 ml BID FLUSH 10/28/16 21:00 10/29/16 20:51 (Roxicodone) 10 mg Q4H PRN PO 10/28/16 17:45 10/29/16 20:52 (Roxicodone) 5 mg Q4H PRN PO 10/28/16 17:45 10/30/16 16:22 (Depakote Er) 500 mg HS PO 10/28/16 21:00 11/02/16 21:07 (Vitamin D3) 1,000 units DAILY PO 10/30/16 09:00 11/03/16 08:56 (Levaquin) 750 mg DAILY PO 10/30/16 16:00 11/03/16 08:55 (Lovenox Inj) 40 mg Q24H SQ 10/30/16 21:00 11/02/16 21:07 A/P Assessment and Plan 76-year-old male with largely unknown past medical history besides dementia and severe Parkinson's disease presenting with: Discharge Planning To [facility] with hospice bed today Problem List: (1) Altered mental status Status: Acute Plan: Dementia for ~ 6 months. History of disease per has been seemingly inconsistent; patient either has been seen in [facility] several times w/o complete workup or had full evaluation in an [facility]. No formal diagnosis CT head negative for acute intracranial bleed Brain MRI showing atrophy with periventricular and deep white matter ischemic myelinization, no acute process TSH wnl B12 pending RPR non-reactive -Neurology consulted, appreciate their recommendations; their assessment is Parkinsonian dementia -Can consider further workup and neurocognitive eval as outpatient, but this is not likely to be of benefit -OT- patient dependent on assistance -Palliative care consulted, appreciate their recommendations -Hospice on board with family, plan is for discharge to [facility] with hospice care today (2) Dementia Status: Chronic Plan: See "Altered Mental Status" above * Continue home antipsychotic medications: Depakote, olanzapine * Haloperidol IM 2mg PRN uncontrolled agitation * Palliative care consulted, appreciate their assistance * Patient NO CODE DNR * Stop Lorazepam on discharge (3) Pneumonia Status: Acute Plan: CXR 10/29: Mild streaky parenchymal changes in the right lung base suggestive of pneumonia. Leukocytosis (11.9) 10/31. No visible respiratory symptoms * Continue Levaquin 750 mg PO daily to complete 10 total days (4) Urinary tract infection Status: Resolved Plan: Urinalysis showing moderate leuk esterase, many white blood cells Urine culture: 34060 K mixed gram-positive juliano; suspect contaminant S/p 3 days Rocephin Discontinued given culture growth of contaminant juliano (5) Frequent falls Status: Chronic Plan: Mostly mechanical, no evidence at this time of other etiology Ankle XR: soft tissue injury * Dispo: [facility] with hospice care Problem Qualifiers (1) Altered mental status: Qualified Code: R41.0 - Delirium (2) Dementia: Qualified Code: 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
--- NOTE | 2016-11-03 14:29 | HHI.HCPN ---
Reason for visit a. To assist with evaluation and management of symptoms including: Pain, confusion b. To assist medical decision maker(s) with: better understanding of current medical conditions; weighing benefits/burdens of medical treatment options; making medical treatment decisions. . (Opal Babb) Subjective/Interval History Mr. Hamilton is a 76-year-old male who presented to [place] ED for evaluation AMS. Assessed today in room 1517. Patient remains very confused today, speech in non-sensical. No longer requiring soft restraints. Afebrile. White blood count normal at 5.3. Remains on oral antibiotics. Neurology was consulted. Recommendations were made to consider psychiatric and behavioral therapy assessment and outpatient extensive cognitive assessment. Frequent neuro checks and fall precautions were also recommended. Per's request , for treatable causes of dementia, will pursue thyroid function tests, B12 and folate blood levels. Continue rivastigmine patch 4.6 mg every 24 hours. . (Opal Babb) Advance Directives Living Will: Never completed Health Care Surrogate: Never completed Durable Power of Asbestos Worker: Never completed (Opal Babb) Advance Directive Specifics Documented care wishes: No written advanced directives have been completed. . (Opal Babb) Objective Vital Signs Date Time Temp Pulse Resp B/P Pulse Ox O2 Delivery O2 Flow Rate FiO2 11/03/16 12:33 98.1 62 19 148/79 95 11/03/16 09:40 51 11/03/16 08:00 97.7 58 16 108/71 96 11/03/16 04:00 97.4 53 18 111/65 97 11/03/16 00:00 97.3 70 18 137/81 98 11/02/16 20:06 64 11/02/16 20:00 97.6 82 18 178/96 99 11/02/16 16:01 97.8 100 20 106/76 Intake & Output 11/03/16 11/03/16 06:59 18:59 Intake Total 720 ml Output Total 2 ml Balance -2 ml 720 ml Intake Oral 720 ml Output Urine Total 2 ml # Voids 2 3 # Bowel Movements 1 0 . Physical Exam CONSTITUTIONAL/GENERAL: This is a frail, cachectic male patient in no acute distress TUBES/LINES/DRAINS: SKIN: Skin warm and dry, pale. Multiple abrasions. HEAD: Atraumatic. Normocephalic. EYES: No scleral icterus. No injection or drainage. Fundi not examined. ENT: Hearing grossly normal. Nose without bleeding or purulent drainage. NECK: Trachea midline. CARDIOVASCULAR: Regular rate and rhythm. No JVD. Peripheral pulses symmetric. RESPIRATORY/CHEST: Symmetric, unlabored respirations. GASTROINTESTINAL: Abdomen soft, non-tender, nondistended. No guarding. Bowel sounds present. GENITOURINARY: Without palpable bladder distension. MUSCULOSKELETAL: Extremities without clubbing or cyanosis. Right lower extremity with trace edema. NEUROLOGICAL: Oriented to self only, pleasantly confused. Nonsensical speech. PSYCHIATRIC: No obvious anxiety/depression observed at the time of examination. . (Opal Babb) Diagnostic Tests Laboratory Laboratory Tests Test 11/01/16 11/01/16 11/01/16 11/02/16 08:45 08:52 09:52 07:31 White Blood Count 7.3 TH/MM3 5.3 TH/MM3 (4.0-11.0) (4.0-11.0) Red Blood Count 4.42 MIL/MM3 4.15 MIL/MM3 (4.50-5.90) (4.50-5.90) Hemoglobin 14.2 GM/DL 13.6 GM/DL (13.0-17.0) (13.0-17.0) Hematocrit 41.9 % 38.7 % (39.0-51.0) (39.0-51.0) Mean Corpuscular Volume 94.7 FL 93.2 FL (80.0-100.0) (80.0-100.0) Mean Corpuscular Hemoglobin 32.2 PG 32.8 PG (27.0-34.0) (27.0-34.0) Mean Corpuscular Hemoglobin 34.0 % 35.2 % Concent (32.0-36.0) (32.0-36.0) Red Cell Distribution Width 14.4 % 14.2 % (11.6-17.2) (11.6-17.2) Platelet Count 334 TH/MM3 318 TH/MM3 (150-450) (150-450) Mean Platelet Volume 7.8 FL 7.8 FL (7.0-11.0) (7.0-11.0) Neutrophils (%) (Auto) 75.0 % 61.9 % (16.0-70.0) (16.0-70.0) Lymphocytes (%) (Auto) 17.5 % 23.4 % (9.0-44.0) (9.0-44.0) Monocytes (%) (Auto) 6.5 % (0.0-8.0) 11.7 % (0.0-8.0) Eosinophils (%) (Auto) 0.4 % (0.0-4.0) 2.1 % (0.0-4.0) Basophils (%) (Auto) 0.6 % (0.0-2.0) 0.9 % (0.0-2.0) Neutrophils # (Auto) 5.5 TH/MM3 3.3 TH/MM3 (1.8-7.7) (1.8-7.7) Lymphocytes # (Auto) 1.3 TH/MM3 1.2 TH/MM3 (1.0-4.8) (1.0-4.8) Monocytes # (Auto) 0.5 TH/MM3 0.6 TH/MM3 (0-0.9) (0-0.9) Eosinophils # (Auto) 0.0 TH/MM3 0.1 TH/MM3 (0-0.4) (0-0.4) Basophils # (Auto) 0.0 TH/MM3 0.0 TH/MM3 (0-0.2) (0-0.2) CBC Comment DIFF FINAL DIFF FINAL Differential Comment Sodium Level 134 MEQ/L 136 MEQ/L (136-145) (136-145) Potassium Level 4.2 MEQ/L 3.9 MEQ/L (3.5-5.1) (3.5-5.1) Chloride Level 98 MEQ/L 101 MEQ/L (98-107) (98-107) Carbon Dioxide Level 25.5 MEQ/L 27.6 MEQ/L (21.0-32.0) (21.0-32.0) Anion Gap 11 MEQ/L (5-15) 7 MEQ/L (5-15) Blood Urea Nitrogen 20 MG/DL (7-18) 18 MG/DL (7-18) Creatinine 0.67 MG/DL 0.55 MG/DL (0.60-1.30) (0.60-1.30) Estimat Glomerular Filtration 116 ML/MIN 145 ML/MIN Rate (>89) (>89) Random Glucose 75 MG/DL 76 MG/DL (74-106) (74-106) Calcium Level 8.9 MG/DL 8.8 MG/DL (8.5-10.1) (8.5-10.1) Thyroid Stimulating Hormone 3.490 uIU/ML 3rd Gen (0.358-3.740) Rapid Plasma Reagin NON-REACTIVE (NON-REACTVE) . (Opal Babb) Result Diagram: 11/02/16 0731 11/02/16 0731 Microbiology Microbiology Date/Time Procedure Status Source Growth 10/29/16 20:49 Aerobic Blood Culture - Final Complete Blood Peripheral NO GROWTH IN 5 DAYS 10/29/16 20:49 Anaerobic Blood Culture - Final Complete Blood Peripheral NO GROWTH IN 5 DAYS . (Opal Babb) Assessment and Plan Disease Oriented Problem List: (1) Dementia (2) Urinary tract infection (3) Frequent falls Symptom Scale: (1) Altered mental status Comment: Patient remains confused, in soft restraints with a sitter at bedside. Physical therapy and speech therapy have been consulted. Speech therapy administered a modified [facility] mental examination (UMS) , excluding written portions. The patient achieved a score of 0/24 points which is indicative of severe neurocognitive disorder/dementia. . (2) Pain 0-10 Scale: Unable to quantify Comment: PRN oxycodone is available q4 hours for symptom managementpain. . (3) Agitation Pertinent Non-Medical Issues Psychosocial: Patient was born in [place], but moved to [place] when he was approximately 11 years old. The patient's states he enjoyed fishing and hunting. He had 2 older brother, both before he was born (around the age of 2 years). He has one sister. The patient is to Indy Hamilton. Together they had 2 children - the patient's states one child is and they have lost contact with the other child. Spiritual: Temple analy per sister Legal: Per [place] statutes, in the absence of written advanced directives healthcare proxy decision-making falls to the patient's Indy Hamilton. Ethical issues impacting care: No known ethical issues impacting care at this time. Important Contacts Indy Hamilton, spouse: [phone] . Prognosis Mr. Hamilton is a 76-year-old male with rapidly progressing dementia. Patient has had a acute decline over the past 6 months AEB a 30 pound weight, new onset agitation, 30 pound weight loss and frequent falls. Prognosis is poor. Code Status: No Code Plan * NO CODE * Decision-making: Patient is incapacitated, unable to verbalize medical treatment goals. Given the patient's severe neurocognitive disorder/dementia, it is unlikely he will retain this capacity. Per [place] statutes, in the absence of written advanced directives healthcare proxy decision making will fall to the patient's Indy Hamilton. * Goals: Discharge to facility with hospice services. * Family had a meeting scheduled with [facility] prior to this hospitalization - [facility] following patient and in frequent contact with patient' s . * Neurology was consulted. Recommendations were made to consider psychiatric and behavioral therapy assessment and outpatient extensive cognitive assessment. Frequent neuro checks and fall precautions were also recommended. Per's request, for treatable causes of dementia, will pursue thyroid function tests, B12 and folate blood levels. Continue rivastigmine patch 4.6 mg every 24 hours. * Symptom managementpain: Patient having intermittent pain, rated 5 out of 10. Possible cause of pain may include invasive lines, multiple recent falls, bedbound status etc. PRN oxycodone is available and being used sparingly. No PRN requirements in the past 24 hours. * Palliative care will continue to follow this patient to establish trust, assist with symptom management and clarification of medical treatment goals. . . (Opal Babb) Collaborating MD Comments Chart reviewed. Case discussed with palliative care COTTON OPENER. Above JUNAID note reviewed and I concur. . (Faheem Gil MD) Opal Babb Nov 03, 2016 14:29 Faheem Gil MD Dec 20, 2016 14:51
--- NOTE | 2016-11-03 17:25 | HHI.DS ---
Discharge Summary Admission Date Oct 28, 2016 at 4:01 pm Discharge Date: Nov 03, 2016 Admitting Diagnosis AMS, UTI, frequent falls (1) Altered mental status Diagnosis: Principal Plan: Dementia for ~ 6 months. History of disease per has been seemingly inconsistent; patient either has been seen in [facility] several times w/o complete workup or had full evaluation in an [facility]. No formal diagnosis CT head negative for acute intracranial bleed Brain MRI showing atrophy with periventricular and deep white matter ischemic myelinization, no acute process TSH wnl B12 pending RPR non-reactive -Neurology consulted, appreciate their recommendations; their assessment is Parkinsonian dementia -Can consider further workup and neurocognitive eval as outpatient, but this is not likely to be of benefit -OT- patient dependent on assistance -Palliative care consulted, appreciate their recommendations -Hospice on board with family, plan is for discharge to [facility] with hospice care today (2) Frequent falls Diagnosis: Principal Plan: Mostly mechanical, no evidence at this time of other etiology Ankle XR: soft tissue injury * Dispo: [facility] with hospice care (3) Dementia Diagnosis: Principal Plan: See "Altered Mental Status" above * Continue home antipsychotic medications: Depakote, olanzapine * Haloperidol IM 2mg PRN uncontrolled agitation * Palliative care consulted, appreciate their assistance * Patient NO CODE DNR * Stop Lorazepam on discharge (4) Pneumonia Diagnosis: Secondary Plan: CXR 10/29: Mild streaky parenchymal changes in the right lung base suggestive of pneumonia. Leukocytosis (11.9) 10/31. No visible respiratory symptoms * Continue Levaquin 750 mg PO daily to complete 10 total days (5) Urinary tract infection Diagnosis: Secondary Plan: Urinalysis showing moderate leuk esterase, many white blood cells Urine culture: 96022 K mixed gram-positive juliano; suspect contaminant S/p 3 days Rocephin Discontinued given culture growth of contaminant juliano [facility] - Dr. 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 He has been seen in [facility] many times in the last several months for falls and continues to deteriorate. More acutely, he is had worsening confusion and agitation. Patient is a poor historian and no report was given with regards to his baseline from the skilled nursing. group home will makes comment about the frequent falls. Patient will occasionally answer yes or no questions in this regard he says he is not having any chest pains, trouble breathing, burning when he urinates, headaches, vision changes. However, as noted patient is a poor historian due to severe dementia and current altered mental status. CBC/BMP: 11/02/16 0731 11/02/16 0731 Significant Findings Laboratory Tests Test 11/01/16 11/01/16 11/02/16 08:45 08:52 07:31 Red Blood Count 4.42 MIL/MM3 4.15 MIL/MM3 (4.50-5.90) (4.50-5.90) Neutrophils (%) (Auto) 75.0 % (16.0-70.0) Sodium Level 134 MEQ/L (136-145) Blood Urea Nitrogen 20 MG/DL (7-18) Hematocrit 38.7 % (39.0-51.0) Monocytes (%) (Auto) 11.7 % (0.0-8.0) Creatinine 0.55 MG/DL (0.60-1.30) Imaging Last Impressions Brain MRI 10/31/16 0000 Signed Impressions: Service Date/Time: Monday, October 31, 2016 16:11 - CONCLUSION: No acute intracranial abnormality. Atrophy with extensive periventricular and mild deep white matter microvascular ischemic myelinization. Eduardo Gurrola MD Chest X-Ray 10/29/16 0000 Signed Impressions: Service Date/Time: Saturday, October 29, 2016 08:19 - CONCLUSION: Mild streaky parenchymal changes in the right lung base suggestive of pneumonia. Carlin Kramer MD Ankle X-Ray 10/29/16 0000 Signed Impressions: Service Date/Time: Saturday, October 29, 2016 14:17 - CONCLUSION: Mild generalized soft tissue swelling. Otherwise negative. Eduardo Gurrola MD Head CT 10/28/16 1421 Signed Impressions: Service Date/Time: Friday, October 28, 2016 14:56 - CONCLUSION: Intracranially with diffuse deep white matter periventricular microvascular ischemic demyelination and atrophy. No acute abnormality. Bilateral ethmoid sinus disease mucoperiosteal thickening and air-fluid level in the left maxillary sinus Eduardo Gurrola MD PE at Discharge GENERAL: Well-developed, undernourished elderly white male sitting up in bed, pleasant and in no acute distress CARDIOVASCULAR: NRRR. Normal S1/S2. No murmurs SKIN: Erythematous rash diffuse on chest and back, sparing arms, non-blanching. Improved from exam yesterday morning. No excoriations. RESPIRATORY: Normal rate. Breath sounds clear anteriorly. No crackles or wheezes. GASTROINTESTINAL: Abdomen non-distended. MUSCULOSKELETAL: Extremities without cyanosis or edema. NEUROLOGICAL: Severely demented/aphasic, no interval change from prior exams. No focal cranial nerve or peripheral motor/sensory deficits appreciated. Hospital Course Elderly male with likely Parkinson's Dementia though no formal diagnosis admitted for altered mental status and frequent mechanical falls. CT head negative for bleed. Urine grew contaminants, mild pneumonia by imaging, started Levaquin PO. Neuro consulted and agreed with Dx of Parkinson's dementia. Ultimately decision was made for hospice care. Patient discharged back to SNF with hospice on board. To complete 10 days Levaquin to treat pneumonia. Pt Condition on Discharge: Stable Discharge Disposition: Hospice/Med Facility Discharge Instructions DIET: Follow Instructions for: As Tolerated, No Restrictions Activities you can perform: See Additionl Instruction Other Activity Instructions: Please follow PT recommendations Follow up Referrals: Neurology - 1 Week with Jennifer Ritchie MD PCP Follow-up - 1 Week New Medications: Cholecalciferol (Vitamin D3) 1,000 Unit Tab 1000 UNITS PO DAILY #30 TAB Levofloxacin (Levaquin) 750 Mg Tab 750 MG PO DAILY #5 TAB Continued Medications: Acetaminophen (Tylenol Extra Strength) 500 Mg Tab 500 MG PO BID PAIN Ref 0 TAB Divalproex ER (Depakote ER) 250 Mg Mazin 500 MG PO HS #30 Ref 0 TAB Divalproex ER (Depakote ER) 250 Mg Mazin 250 MG PO DAILY #30 Ref 0 TAB Docusate Sodium (Colace) 100 Mg Cap 100 MG PO BID Constipation #60 Ref 0 CAP Melatonin (Melatonin) 10 Mg Tab 10 MG PO HS SLEEP Ref 0 TAB Multiple Vitamin (Daily Anusha) 1 Tab Tab 1 TAB PO DAILY Olanzapine (Olanzapine) 2.5 Mg Tab 2.5 MG PO HS #30 Ref 0 TAB Olanzapine (Olanzapine) 5 Mg Tab 5 MG PO BID #60 Ref 0 TAB Rivastigmine Patch (Exelon Patch) 4.6 mg/24 hr Patch 1 PATCH T-DERMAL DAILY Remove old patch before applying new patch Dementia #30 Ref 0 PATCH Discontinued Medications: Lorazepam (Ativan) 1 Mg Tab 1 MG PO TID ANXIETY AND/OR AGITATION Ref 0 TAB Frank Martini MD R1 Nov 03, 2016 5:25 pm
[2016-11-03] MEDS: DIVALPROEX SODIUM E.R. 500 MG TAB PO SCH (21:13)
[2016-11-03] MEDS: OLANZapine 2.5 MG TAB PO SCH (21:13)
[2016-11-03] MEDS: ENOXAPARIN SODIUM 40 MG/0.4 ML SYRINGE SQ SCH (21:14)
[2016-11-04 04:00] VITALS: BP 118/69; PULSE 75; RESP 20; TEMP 98.8; O2SAT 95
[2016-11-04] MEDS: SODIUM CHLORIDE 0.9% FLUSH 5 ML FLUSH FLUSH SCH (07:43)
[2016-11-04] MEDS: DOCUSATE SODIUM 100 MG CAP PO SCH (07:43)
[2016-11-04] MEDS: RIVASTIGMINE 4.6 MG/24 HOUR PATCH T-DERMAL SCH (07:56)
[2016-11-04] MEDS: CHOLECALCIFEROL (VIT D3) 1000 UNIT TAB PO SCH (07:56)
[2016-11-04] MEDS: LEVOFLOXACIN 750 MG TAB PO SCH (07:57)
[2016-11-04] MEDS: OLANZapine 5 MG TAB PO SCH (07:57)
[2016-11-04] MEDS: MULTIVITAMIN TAB PO SCH (07:57)
[2016-11-04] MEDS: DIVALPROEX SODIUM E.R. 250 MG TAB PO SCH (07:57)
[2016-11-04 08:17] VITALS: BP 128/67; PULSE 74; RESP 18; TEMP 95.4; O2SAT 91
--- NOTE | 2016-11-04 11:56 | HHI.FPPN ---
Subjective Remarks No acute events overnight. AFVSS. Somewhat agitated this morning, able to be redirected. (Frank Martini MD R1) Objective Vitals Vital Signs Date Time Temp Pulse Resp B/P Pulse Ox O2 Delivery O2 Flow Rate FiO2 11/04/16 08:17 95.4 74 18 128/67 91 11/04/16 04:00 98.8 75 20 118/69 95 11/03/16 20:00 95.8 84 20 123/77 96 11/03/16 19:00 78 11/03/16 12:33 98.1 62 19 148/79 95 I/O 11/03/16 11/03/16 11/03/16 11/04/16 11/04/16 11/04/16 07:00 15:00 23:00 07:00 15:00 23:00 Intake Total 720 ml 480 ml Output Total 2 ml Balance -2 ml 720 ml 480 ml Intake Oral 720 ml 480 ml Output Urine Total 2 ml # Voids 2 3 2 1 # Bowel Movements 1 0 1 1 (Frank Martini MD R1) Result Diagram: 11/02/16 0731 11/02/16 0731 Imaging Last Impressions Brain MRI 10/31/16 0000 Signed Impressions: Service Date/Time: Monday, October 31, 2016 16:11 - CONCLUSION: No acute intracranial abnormality. Atrophy with extensive periventricular and mild deep white matter microvascular ischemic myelinization. Eduardo Gurrola MD Chest X-Ray 10/29/16 0000 Signed Impressions: Service Date/Time: Saturday, October 29, 2016 08:19 - CONCLUSION: Mild streaky parenchymal changes in the right lung base suggestive of pneumonia. Carlin Kramer MD Ankle X-Ray 10/29/16 0000 Signed Impressions: Service Date/Time: Saturday, October 29, 2016 14:17 - CONCLUSION: Mild generalized soft tissue swelling. Otherwise negative. Eduardo Gurrola MD Head CT 10/28/16 1421 Signed Impressions: Service Date/Time: Friday, October 28, 2016 14:56 - CONCLUSION: Intracranially with diffuse deep white matter periventricular microvascular ischemic demyelination and atrophy. No acute abnormality. Bilateral ethmoid sinus disease mucoperiosteal thickening and air-fluid level in the left maxillary sinus Eduardo Gurrola MD Objective Remarks GENERAL: Well-developed, undernourished elderly white male sitting up in bed, pleasant and in no acute distress CARDIOVASCULAR: NRRR. Normal S1/S2. No murmurs SKIN: Erythematous rash diffuse on chest and back, sparing arms, non-blanching. Improved from prior exams. No excoriations. RESPIRATORY: Normal rate. Breath sounds clear anteriorly. No crackles or wheezes. GASTROINTESTINAL: Abdomen non-distended. MUSCULOSKELETAL: Extremities without cyanosis or edema. NEUROLOGICAL: Severely demented/aphasic, intermittently agitated, no interval change from prior exams. No focal cranial nerve or peripheral motor/sensory deficits appreciated. Medications and IVs Current Medications Medications (Trade) Dose Ordered Sig/Bhupendra Route Start Time Stop Time Status Last Admin (Depakote Er) 250 mg DAILY PO 10/29/16 09:00 11/04/16 07:57 (Colace) 100 mg BID PO 10/28/16 21:00 11/03/16 08:55 (Theragran) 1 tab DAILY PO 10/29/16 09:00 11/04/16 07:57 (ZyPREXA) 2.5 mg HS PO 10/28/16 21:00 11/03/16 21:13 (ZyPREXA) 5 mg BID PO 10/28/16 21:00 11/04/16 07:57 (Exelon 4.6 Mg Patch.24hr) 1 patch DAILY T-DERMAL 10/29/16 09:00 11/04/16 07:56 (NS Flush) 2 ml UNSCH PRN FLUSH 10/28/16 17:45 (NS Flush) 2 ml BID FLUSH 10/28/16 21:00 10/29/16 20:51 (Roxicodone) 10 mg Q4H PRN PO 10/28/16 17:45 10/29/16 20:52 (Roxicodone) 5 mg Q4H PRN PO 10/28/16 17:45 10/30/16 16:22 (Depakote Er) 500 mg HS PO 10/28/16 21:00 11/03/16 21:13 (Vitamin D3) 1,000 units DAILY PO 10/30/16 09:00 11/04/16 07:56 (Levaquin) 750 mg DAILY PO 10/30/16 16:00 11/04/16 07:57 (Lovenox Inj) 40 mg Q24H SQ 10/30/16 21:00 11/03/16 21:14 (Frank Martini MD R1) A/P Assessment and Plan 76-year-old male with largely unknown past medical history besides dementia and severe Parkinson's disease presenting with: Discharge Planning To [facility] with hospice bed today (Frank Martini MD R1) Attending Attestation Patient seen and examined. Case reviewed and discussed Agree with plan of care as discussed with me and documented in the resident note. (Rhonda Armstrong MD) Problem List: (1) Altered mental status Status: Acute Plan: Dementia for ~ 6 months. History of disease per has been seemingly inconsistent; patient either has been seen in [facility] several times w/o complete workup or had full evaluation in an [facility]. No formal diagnosis CT head negative for acute intracranial bleed Brain MRI showing atrophy with periventricular and deep white matter ischemic myelinization, no acute process TSH wnl B12 pending RPR non-reactive -Neurology consulted, appreciate their recommendations; their assessment is Parkinsonian dementia -Can consider further workup and neurocognitive eval as outpatient, but this is not likely to be of benefit -OT- patient dependent on assistance -Palliative care consulted, appreciate their recommendations -Hospice on board with family, plan is for discharge to [facility] with hospice care today (2) Frequent falls Status: Chronic Plan: Mostly mechanical, no evidence of other etiology Ankle XR: soft tissue injury * Dispo: [facility] with hospice care (3) Dementia Status: Chronic Plan: See "Altered Mental Status" above * Continue home antipsychotic medications: Depakote, olanzapine * Haloperidol IM 2mg PRN uncontrolled agitation * Palliative care consulted, appreciate their assistance * Patient NO CODE DNR * Stop Lorazepam on discharge (4) Pneumonia Status: Acute Plan: CXR 10/29: Mild streaky parenchymal changes in the right lung base suggestive of pneumonia. Leukocytosis (11.9) 10/31. 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
[2016-11-04] MEDS ORDERED: HALOPERIDOL LACTATE 5 MG/ML AMP IM ONE (14:15)
[2016-11-04] MEDS ORDERED: HALOPERIDOL LACTATE 5 MG/ML AMP IM PRN (16:00)
== END 2016-11-04 15:36 | disposition hospice, inpatient (51) | DRG 56 ==
LOC: NEPA 14:15 → NEDA 16:01 → N05A 20:40 → N05B 10-30 19:58 → UNDODISIN 11-04 13:01
PROVIDERS: ADMIT Family Medicine; ATTEND Family Medicine
DX: G20 Parkinson's disease (principal); J18.9 Pneumonia, unspecified organism; E46 Unspecified protein-calorie malnutrition; L89.151 Pressure ulcer of sacral region, stage 1; F02.81 Dementia in other diseases classified elsewhere, unspecified severity, with behavioral disturbance; N30.01 Acute cystitis with hematuria; Z68.1 Body mass index [BMI] 19.9 or less, adult; R47.01 Aphasia; E87.6 Hypokalemia; R21 Rash and other nonspecific skin eruption; R29.6 Repeated falls; F41.9 Anxiety disorder, unspecified; Z51.5 Encounter for palliative care; Z66 Do not resuscitate; Z78.1 Physical restraint status; Z85.828 Personal history of other malignant neoplasm of skin
CPT/HCPCS: 70450; 70551; 71010; 73610; 76937; 80048; 80053; 80164; 81001; 82140; 82306; 82565; 82607; 84132; 84443; 84484; 84520; 85007; 85025; 85027; 86592; 87040; 87086; 93005; J0131; J0456; J0696; J1630; J1650; J7050; P9612